=== PATIENT | female | born 1990 | race Caucasian/White ===

== ENCOUNTER 2016-09-23 18:48 | Inpatient (IN) | payer BC ==
[~2016-09-23] VITALS: Ht 147.3 cm; Wt 32.2 kg
[~2016-09-23 18:48] MED LIST: BUPR-51 PO; CHLO25CA10 PO; LORA2TAB PO; VALA500T35 PO
[2016-09-23] MEDS ORDERED: IV NS 0.9% 1,000 ML ONE (19:56)
[2016-09-23] MEDS ORDERED: IV SET PRIMARY 1 EA INFUS.SET MC ONE (19:56)
[2016-09-23] MEDS ORDERED: ONDANSETRON HCL/PF 4 MG/2 ML VIAL ONE (19:56)
[2016-09-23] MEDS ORDERED: IV NS 0.9% 1,000 ML BAG IV ONE (20:00)
[2016-09-23] MEDS ORDERED: ONDANSETRON HCL/PF 4 MG/2 ML VIAL IVP ONE (20:00)
[2016-09-23 20:11] LABS: HEMATOCRIT 29 % (33-45); WHITE BLOOD COUNT (AUTO) 5.6 K/uL (4.3-11.0)
[2016-09-23 20:15] LABS: MEAN CORPUSCULAR HEMOGLOBIN 36 PG (26.0-33.0); MEAN CORPUSCULAR HGB CONC 34 g/dl (31.0-36.0); MEAN CORPUSCULAR VOLUME 105 fL (82-100); PLATELET COUNT (AUTO) 119 /CMM (150-450); RED BLOOD CELL COUNT(AUTO) 2.77 MIL/uL (4.0-5.2)
[2016-09-23 20:29] LABS: ALBUMIN 3.9 g/dL (3.4-5.0); BILIRUBIN,DIRECT 5.8 mg/dL (0.0-0.2); CALCIUM, SERUM 9.3 mg/dL (8.5-10.1); CREATININE 0.5 mg/dL (0.6-1.3); INDIRECT BILIRUBIN 1.2 mg/dL (0.0-1.1); POTASSIUM 3.2 mmol/L (3.5-5.1); TOTAL PROTEIN, SERUM 7.9 g/dL (6.4-8.2)
[2016-09-23] MEDS ORDERED: FOLIC ACID 1 MG TABLET ONE (20:51)
[2016-09-23] MEDS ORDERED: THIAMINE HCL 100 MG TABLET ONE (20:51)
[2016-09-23] MEDS ORDERED: FOLIC ACID 1 MG TABLET PO ONE (21:00)
[2016-09-23] MEDS ORDERED: THIAMINE HCL 100 MG TABLET PO ONE (21:00)
[2016-09-23 21:10] LABS: PHOSPHORUS 1.3 mg/dL (2.5-4.9)
[2016-09-23 21:25] LABS: BAND % (MANUAL) 5 % (0.0-5.0); LYMPHOCYTES % (MANUAL) 8 % (16-48)
[2016-09-23 21:26] LABS: PLATELET ESTIMATE DECREASED
[2016-09-23 21:31] LABS: LACTIC ACID 1.7 mmol/L (0.4-2.0)
[2016-09-23 21:41] LABS: ABG BASE EXCESS -17.4 mmol/L; ABG HCO3 6.7 mmol/L; ABG PCO2 13.3 mmHg (35.0-45.0); ABG PH 7.318 (7.350-7.450); ABG PO2 118.5 mmHg (75.0-100.0); ABG TOTAL HEMOGLOBIN 8.7 G/dL (12.0-16.0); ALLEN TEST Pass; AaDO2 15.3 mmHg; O2Hb 96.8 % (94.0-97.0)
[2016-09-23] MEDS ORDERED: IV SET PRIMARY PUMP SET 1 EA INFUS.SET MC ONE ×2 (21:46→23:12)
[2016-09-23] MEDS ORDERED: Magnesium 1GM/D5W 100ML PREMIX 100 ML IV ONE ×2 (21:46→23:12)
[2016-09-23] MEDS: Magnesium 1GM/D5W 100ML PREMIX 100 ML IV SCH ×2 (21:59→23:25)
[2016-09-23] MEDS ORDERED: LORAZEPAM INJ 2 MG/ML VIAL ONE (22:23)
[2016-09-23] MEDS ORDERED: LORAZEPAM INJ 2 MG/ML VIAL IV ONE (22:30)
[2016-09-24] VITALS: BP 106/71
[2016-09-24] MEDS ORDERED: Magnesium 1GM/D5W 100ML PREMIX 100 ML IV SCH
[2016-09-24] MEDS ORDERED: MAG HYDROX/AL HYDROX/SIMETH 30 ML UDC PO PRN
[2016-09-24] MEDS ORDERED: Sodium Phosphate 15 MMOL in IV D5W 250 ML IV ONE ×2
[2016-09-24] MEDS ORDERED: ACETAMINOPHEN 325 MG TABLET PO PRN
[2016-09-24] MEDS ORDERED: ZOLPIDEM TARTRATE 5 MG TABLET PO PRN
[2016-09-24] MEDS ORDERED: MAGNESIUM HYDROXIDE 30 ML UDC PO PRN
[2016-09-24] MEDS ORDERED: HYDROCODONE/APAP 5/325MG 1 EACH TABLET PO PRN
[2016-09-24] MEDS ORDERED: Z GUARD REMEDY 2 OZ OINT TP PRN
[2016-09-24] MEDS ORDERED: IV SET PRIMARY PUMP SET 1 EA INFUS.SET MC ONE ×3 (00:52→10:28)
[2016-09-24] MEDS ORDERED: IV PREMIX NS + 40 MEQ KCL 40 MEQ/L BAG IV ONE (01:16)
[2016-09-24] MEDS: Magnesium 1GM/D5W 100ML PREMIX 100 ML IV SCH ×4 (01:19→04:25)
[2016-09-24] MEDS ORDERED: IV PREMIX D5 NS + KCL 1,000 ML IV ONE (01:19)
[2016-09-24] MEDS: Potassium Chloride 40 MEQ in IV D5/ 0.9% NACL 1,000 ML IV PRN ×3 (02:03→23:09)
[2016-09-24 04:00] VITALS: BP 93/64
[2016-09-24 08:00] VITALS: BP 89/56
[2016-09-24] MEDS: THIAMINE HCL 100 MG TABLET PO SCH (09:01)
[2016-09-24] MEDS: PANTOPRAZOLE 40 MG TABLET.DR PO SCH (09:01)
[2016-09-24] MEDS: FOLIC ACID 1 MG TABLET PO SCH (09:01)
[2016-09-24] MEDS ORDERED: CLON0.2T PO (09:59)
[2016-09-24] MEDS ORDERED: BUPR1FIL3 SL (09:59)
[2016-09-24] MEDS ORDERED: SECONDARY IV SET 1 EA INFUS.SET MC ONE (10:24)
[2016-09-24] MEDS: POTASSIUM PHOSPHATE MM 5 MMOL in IV D5W 100 ML IV SCH ×4 (10:31→16:43)
[2016-09-24 12:00] VITALS: BP 96/60
[2016-09-24 15:24] LABS: BASOPHILS % (AUTO) 0.7 % (0.0-2.0); DIFF TOTAL % 100 %; EOSINOPHILS % (AUTO) 1.6 % (0.0-6.0); LYMPHOCYTES # (AUTO) 0.4 /CMM (0.8-4.8); LYMPHOCYTES % (AUTO) 19.3 % (20.0-44.0); MEAN CORPUSCULAR HEMOGLOBIN 35 PG (26.0-33.0); MEAN CORPUSCULAR HGB CONC 35 g/dl (31.0-36.0); MEAN CORPUSCULAR VOLUME 101 fL (82-100); MONOCYTES # (AUTO) 0.1 /CMM (0.1-1.30); MONOCYTES % (AUTO) 6.1 % (2.0-12.0); NEUTROPHILS # (AUTO) 1.4 /CMM (1.8-8.9); NEUTROPHILS % (AUTO) 72.3 % (43.0-81.0); PLATELET COUNT (AUTO) 79 /CMM (150-450)
[2016-09-24 16:00] VITALS: BP 87/49
[2016-09-24 16:11] LABS: ABG BASE EXCESS -3.6 mmol/L; ABG HCO3 20.1 mmol/L; ABG PCO2 30.1 mmHg (35.0-45.0); ABG PH 7.442 (7.350-7.450); ABG PO2 100.8 mmHg (75.0-100.0); ABG TOTAL HEMOGLOBIN 7.2 G/dL (12.0-16.0); ALLEN TEST Pass; AaDO2 12.9 mmHg; O2Hb 95.6 % (94.0-97.0)
[2016-09-24 16:27] LABS: HEMATOCRIT 20 % (33-45); RED BLOOD CELL COUNT(AUTO) 1.99 MIL/uL (4.0-5.2)
[2016-09-24 16:28] LABS: WHITE BLOOD COUNT (AUTO) 1.9 K/uL (4.3-11.0)
[2016-09-24 16:48] LABS: ALBUMIN 2.8 g/dL (3.4-5.0); BILIRUBIN,TOTAL 6.2 mg/dL (0.2-1.0); CALCIUM, SERUM 6.6 mg/dL (8.5-10.1); CREATININE 0.6 mg/dL (0.6-1.3); PHOSPHORUS 1.7 mg/dL (2.5-4.9); POTASSIUM 3.1 mmol/L (3.5-5.1); TOTAL PROTEIN, SERUM 5.8 g/dL (6.4-8.2)
[2016-09-24 16:50] LABS: BAND % (MANUAL) 4 % (0.0-5.0); EOSINOPHILS % (MANUAL) 1 % (0-4); LYMPHOCYTES % (MANUAL) 27 % (16-48); PLATELET ESTIMATE DECREASED
[2016-09-24 18:54] LABS: INR 1.17 (0.87-1.13); PROTHROMBIN TIME 12.7 SECS (9.5-12.7)
[2016-09-24 20:00] VITALS: BP 89/51
[2016-09-24] MEDS: ONDANSETRON HCL/PF 4 MG/2 ML VIAL IVP PRN (20:39)
[2016-09-24] MEDS ORDERED: LORAZEPAM INJ 2 MG/ML VIAL ONE (23:23)
[2016-09-24] MEDS: LORAZEPAM INJ 2 MG/ML VIAL IV PRN (23:32)
[2016-09-25] VITALS (10 sets, daily range): BP systolic 81–95; BP diastolic 46–63
[2016-09-25] MEDS: FOLIC ACID 1 MG TABLET PO SCH (08:36)
[2016-09-25] MEDS: THIAMINE HCL 100 MG TABLET PO SCH (08:36)
[2016-09-25] MEDS: PANTOPRAZOLE 40 MG TABLET.DR PO SCH (08:36)
[2016-09-25] MEDS: Potassium Chloride 40 MEQ in IV D5/ 0.9% NACL 1,000 ML IV PRN (09:02)
[2016-09-25 09:27] LABS: BASOPHILS % (AUTO) 0.4 % (0.0-2.0); DIFF TOTAL % 100 %; EOSINOPHILS % (AUTO) 2.1 % (0.0-6.0); LYMPHOCYTES # (AUTO) 0.7 /CMM (0.8-4.8); LYMPHOCYTES % (AUTO) 31.8 % (20.0-44.0); MEAN CORPUSCULAR HEMOGLOBIN 35 PG (26.0-33.0); MEAN CORPUSCULAR HGB CONC 34 g/dl (31.0-36.0); MEAN CORPUSCULAR VOLUME 103 fL (82-100); MONOCYTES # (AUTO) 0.2 /CMM (0.1-1.30); NEUTROPHILS # (AUTO) 1.2 /CMM (1.8-8.9); NEUTROPHILS % (AUTO) 56.7 % (43.0-81.0); PLATELET COUNT (AUTO) 72 /CMM (150-450); WHITE BLOOD COUNT (AUTO) 2.1 K/uL (4.3-11.0)
[2016-09-25 09:40] LABS: RED BLOOD CELL COUNT(AUTO) 1.98 MIL/uL (4.0-5.2)
[2016-09-25 09:41] LABS: HEMATOCRIT 20 % (33-45); HEMOGLOBIN 6.9 g/dL (11.5-14.8)
[2016-09-25 10:23] LABS: BAND % (MANUAL) 1 % (0.0-5.0); EOSINOPHILS % (MANUAL) 2 % (0-4); LYMPHOCYTES % (MANUAL) 31 % (16-48); PLATELET ESTIMATE DECREASED
[2016-09-25 12:04] LABS: CALCIUM, SERUM 7.3 mg/dL (8.5-10.1); CREATININE 0.5 mg/dL (0.6-1.3); POTASSIUM 3.4 mmol/L (3.5-5.1)
[2016-09-25 12:25] LABS: HEPATITIS C VIRUS AB <0.1 s/co ratio (0.0-0.9)
[2016-09-25 13:10] LABS: PHOSPHORUS 0.6 mg/dL (2.5-4.9)
[2016-09-25] MEDS ORDERED: Sodium Phosphate 30 MMOL in IV D5W 250 ML IV ONE (16:00)
[2016-09-25] MEDS ORDERED: Magnesium 1GM/D5W 100ML PREMIX PIGGYBACK IV ONE (16:00)
[2016-09-25] MEDS ORDERED: Magnesium 1GM/D5W 100ML PREMIX 100 ML IV SCH (16:30)
[2016-09-25] MEDS: HYDROMORPHONE 1 MG/1 ML DISP.SYRIN IV PRN (17:02)
[2016-09-25 17:05] LABS: CANNABINOID, URINE NEGATIVE (NEGATIVE); PHENCYCLIDINE SCREEN,URINE NEGATIVE (NEGATIVE)
[2016-09-25] MEDS ORDERED: SECONDARY IV SET 1 EA INFUS.SET MC ONE (17:23)
[2016-09-25] MEDS ORDERED: IV NS 0.9% 250 ML IV ONE ×2 (17:23→20:55)
[2016-09-25] MEDS ORDERED: BLOOD IV SET 1 EA INFUS.SET MC ONE (20:55)
[2016-09-25] MEDS ORDERED: Sodium Phosphate 15 MMOL in IV D5W 250 ML IV ONE (22:00)
[2016-09-26] VITALS: BP_SYST 86; BP_SYST 92; BP_SYST 94; BP_DIAS 46; BP_DIAS 56
[2016-09-26] MEDS: Potassium Chloride 40 MEQ in IV D5/ 0.9% NACL 1,000 ML IV PRN (00:01)
[2016-09-26] MEDS: HYDROMORPHONE 1 MG/1 ML DISP.SYRIN IV PRN ×4 (00:23→20:01)
[2016-09-26] MEDS: PANTOPRAZOLE 40 MG TABLET.DR PO SCH ×2 (07:30→12:05)
[2016-09-26 08:00] VITALS: BP 90/59
[2016-09-26] MEDS: THIAMINE HCL 100 MG TABLET PO SCH (09:00)
[2016-09-26] MEDS: FOLIC ACID 1 MG TABLET PO SCH (09:00)
[2016-09-26 12:02] LABS: BASOPHILS % (AUTO) 0.1 % (0.0-2.0); DIFF TOTAL % 100 %; EOSINOPHILS % (AUTO) 0.6 % (0.0-6.0); HEMATOCRIT 26 % (33-45); LYMPHOCYTES # (AUTO) 0.8 /CMM (0.8-4.8); LYMPHOCYTES % (AUTO) 29.7 % (20.0-44.0); MEAN CORPUSCULAR HEMOGLOBIN 35 PG (26.0-33.0); MEAN CORPUSCULAR HGB CONC 34 g/dl (31.0-36.0); MEAN CORPUSCULAR VOLUME 101 fL (82-100); MONOCYTES # (AUTO) 0.3 /CMM (0.1-1.30); NEUTROPHILS # (AUTO) 1.5 /CMM (1.8-8.9); NEUTROPHILS % (AUTO) 57.6 % (43.0-81.0); PLATELET COUNT (AUTO) 82 /CMM (150-450); RED BLOOD CELL COUNT(AUTO) 2.58 MIL/uL (4.0-5.2); WHITE BLOOD COUNT (AUTO) 2.7 K/uL (4.3-11.0)
[2016-09-26 12:17] LABS: IRON, SERUM 64 ug/dl (50-175); PERCENT SATURATION 50 % (14-33); TOTAL IRON BINDING CAPACITY 128 ug/dl (250-450)
[2016-09-26 12:34] LABS: BAND % (MANUAL) 5 % (0.0-5.0); EOSINOPHILS % (MANUAL) 1 % (0-4); LYMPHOCYTES % (MANUAL) 17 % (16-48)
[2016-09-26 12:35] LABS: ANISOCYTOSIS 1+; PLATELET ESTIMATE DECREASED
[2016-09-26 12:46] LABS: URIC ACID < 2.6 mg/dL (2.6-7.2)
[2016-09-26 12:49] LABS: ANION GAP 16 (5-14); CALCIUM, SERUM 7.1 mg/dL (8.5-10.1); CARBON DIOXIDE 22 mmol/L (21-32); CHLORIDE 102 mmol/L (98-107); CREATININE 0.5 mg/dL (0.6-1.3); GFR 147 mL/min (>60); GLUCOSE 107 mg/dL (74-106); POTASSIUM 3.6 mmol/L (3.5-5.1); SODIUM SERUM 136 mmol/L (136-145); UREA NITROGEN, BLOOD 0 mg/dL (7-18)
[2016-09-26 12:50] VITALS: BP 93/67
[2016-09-26 14:57] LABS: ALBUMIN 2.6 g/dL (3.4-5.0); BILIRUBIN,DIRECT 5.6 mg/dL (0.0-0.2); BILIRUBIN,TOTAL 6.7 mg/dL (0.2-1.0); INDIRECT BILIRUBIN 1.1 mg/dL (0.0-1.1); TOTAL PROTEIN, SERUM 5.5 g/dL (6.4-8.2)
[2016-09-26] MEDS ORDERED: Sodium Phosphate 15 MMOL in IV D5W 250 ML IV ONE (17:30)
[2016-09-26 17:44] VITALS: BP 92/60
[2016-09-26 20:00] VITALS: BP 95/64
[2016-09-27] MEDS: HYDROMORPHONE 1 MG/1 ML DISP.SYRIN IV PRN ×6 (00:14→20:52)
[2016-09-27] MEDS: Potassium Chloride 40 MEQ in IV D5/ 0.9% NACL 1,000 ML IV PRN ×2 (01:08→13:07)
[2016-09-27 04:00] VITALS: BP 81/51
[2016-09-27 06:47] LABS: DIFF TOTAL % 100 %; EOSINOPHILS % (AUTO) 1.3 % (0.0-6.0); HEMATOCRIT 24 % (33-45); HEMOGLOBIN 8.6 g/dL (11.5-14.8); LYMPHOCYTES # (AUTO) 0.7 /CMM (0.8-4.8); LYMPHOCYTES % (AUTO) 21.5 % (20.0-44.0); MEAN CORPUSCULAR HEMOGLOBIN 37 PG (26.0-33.0); MEAN CORPUSCULAR HGB CONC 35 g/dl (31.0-36.0); MEAN CORPUSCULAR VOLUME 103 fL (82-100); MONOCYTES # (AUTO) 0.5 /CMM (0.1-1.30); NEUTROPHILS # (AUTO) 2.1 /CMM (1.8-8.9); NEUTROPHILS % (AUTO) 63.2 % (43.0-81.0); PLATELET COUNT (AUTO) 90 /CMM (150-450); RED BLOOD CELL COUNT(AUTO) 2.37 MIL/uL (4.0-5.2); WHITE BLOOD COUNT (AUTO) 3.3 K/uL (4.3-11.0)
[2016-09-27 08:28] LABS: ANISOCYTOSIS 1+; BAND % (MANUAL) 6 % (0.0-5.0); EOSINOPHILS % (MANUAL) 1 % (0-4); LYMPHOCYTES % (MANUAL) 21 % (16-48); PLATELET ESTIMATE DECREASED
[2016-09-27] MEDS ORDERED: BARIUM SULFATE SUSP 450 ML BOTTLE PO ONE (08:30)
[2016-09-27] MEDS: FOLIC ACID 1 MG TABLET PO SCH ×2 (09:25→11:15)
[2016-09-27] MEDS: PANTOPRAZOLE 40 MG TABLET.DR PO SCH (09:25)
[2016-09-27] MEDS: THIAMINE HCL 100 MG TABLET PO SCH ×2 (09:25→11:15)
[2016-09-27] MEDS: ONDANSETRON HCL/PF 4 MG/2 ML VIAL IVP PRN (10:16)
[2016-09-27 10:42] LABS: CALCIUM, SERUM 7.1 mg/dL (8.5-10.1); CREATININE 0.3 mg/dL (0.6-1.3); PHOSPHORUS 1.8 mg/dL (2.5-4.9); POTASSIUM 3.6 mmol/L (3.5-5.1)
[2016-09-27] MEDS ORDERED: IOHEXOL-300 100 ML VIAL IV ONE (10:49)
[2016-09-27] MEDS ORDERED: IV NS 0.9% 250 ML IV ONE (10:49)
[2016-09-27] MEDS ORDERED: CT SWABBABLE VALVE TRANS SET 1 EA INFUS.SET MC ONE (10:49)
[2016-09-27 12:00] VITALS: BP 110/65
[2016-09-27] MEDS ORDERED: K PHOS NEUTRAL 250 MG TABLET PO ONE (16:00)
[2016-09-27 20:00] VITALS: BP 89/53
[2016-09-28] MEDS: Potassium Chloride 40 MEQ in IV D5/ 0.9% NACL 1,000 ML IV PRN ×2 (00:41→12:40)
[2016-09-28] MEDS: HYDROMORPHONE 1 MG/1 ML DISP.SYRIN IV PRN ×6 (00:49→21:40)
[2016-09-28 04:00] VITALS: BP 89/56
[2016-09-28 07:53] LABS: BASOPHILS % (AUTO) 0.4 % (0.0-2.0); DIFF TOTAL % 100 %; EOSINOPHILS # (AUTO) 0.1 /CMM (0.0-0.7); EOSINOPHILS % (AUTO) 1.7 % (0.0-6.0); HEMATOCRIT 25 % (33-45); HEMOGLOBIN 8.6 g/dL (11.5-14.8); LYMPHOCYTES # (AUTO) 0.7 /CMM (0.8-4.8); LYMPHOCYTES % (AUTO) 19.7 % (20.0-44.0); MEAN CORPUSCULAR HEMOGLOBIN 35 PG (26.0-33.0); MEAN CORPUSCULAR HGB CONC 34 g/dl (31.0-36.0); MEAN CORPUSCULAR VOLUME 104 fL (82-100); MONOCYTES # (AUTO) 0.8 /CMM (0.1-1.30); MONOCYTES % (AUTO) 20.5 % (2.0-12.0); NEUTROPHILS # (AUTO) 2.1 /CMM (1.8-8.9); NEUTROPHILS % (AUTO) 57.7 % (43.0-81.0); PLATELET COUNT (AUTO) 121 /CMM (150-450); RED BLOOD CELL COUNT(AUTO) 2.45 MIL/uL (4.0-5.2); WHITE BLOOD COUNT (AUTO) 3.7 K/uL (4.3-11.0)
[2016-09-28 08:10] LABS: CALCIUM, SERUM 7.3 mg/dL (8.5-10.1); CREATININE 0.3 mg/dL (0.6-1.3); PHOSPHORUS 2.1 mg/dL (2.5-4.9); POTASSIUM 3.8 mmol/L (3.5-5.1)
[2016-09-28 08:55] VITALS: BP 100/56
[2016-09-28 08:57] LABS: ANISOCYTOSIS 2+; BAND % (MANUAL) 6 % (0.0-5.0); LYMPHOCYTES % (MANUAL) 17 % (16-48); PLATELET ESTIMATE DECREASED
[2016-09-28] MEDS: PANTOPRAZOLE 40 MG TABLET.DR PO SCH (08:58)
[2016-09-28 12:00] VITALS: BP 86/56
[2016-09-28 12:14] LABS: ALBUMIN 2.5 g/dL (3.4-5.0); BILIRUBIN,DIRECT 5.9 mg/dL (0.0-0.2); INDIRECT BILIRUBIN 1.1 mg/dL (0.0-1.1); TOTAL PROTEIN, SERUM 5.5 g/dL (6.4-8.2)
[2016-09-28 16:16] VITALS: BP 96/58
[2016-09-28] MEDS ORDERED: K PHOS NEUTRAL 250 MG TABLET PO ONE (16:30)
[2016-09-28 20:00] VITALS: BP 88/56
[2016-09-29] MEDS: HYDROMORPHONE 1 MG/1 ML DISP.SYRIN IV PRN ×6 (02:15→22:06)
[2016-09-29] MEDS: Potassium Chloride 40 MEQ in IV D5/ 0.9% NACL 1,000 ML IV PRN ×3 (02:15→22:06)
[2016-09-29 04:00] VITALS: BP 81/47
[2016-09-29 07:18] LABS: BASOPHILS % (AUTO) 0.4 % (0.0-2.0); DIFF TOTAL % 100 %; EOSINOPHILS # (AUTO) 0.1 /CMM (0.0-0.7); EOSINOPHILS % (AUTO) 1.8 % (0.0-6.0); HEMATOCRIT 24 % (33-45); HEMOGLOBIN 8.1 g/dL (11.5-14.8); LYMPHOCYTES # (AUTO) 0.9 /CMM (0.8-4.8); LYMPHOCYTES % (AUTO) 23.8 % (20.0-44.0); MEAN CORPUSCULAR HEMOGLOBIN 35 PG (26.0-33.0); MEAN CORPUSCULAR HGB CONC 33 g/dl (31.0-36.0); MEAN CORPUSCULAR VOLUME 104 fL (82-100); MONOCYTES # (AUTO) 0.7 /CMM (0.1-1.30); MONOCYTES % (AUTO) 18.1 % (2.0-12.0); NEUTROPHILS # (AUTO) 2.2 /CMM (1.8-8.9); NEUTROPHILS % (AUTO) 55.9 % (43.0-81.0); PLATELET COUNT (AUTO) 144 /CMM (150-450); RED BLOOD CELL COUNT(AUTO) 2.35 MIL/uL (4.0-5.2); WHITE BLOOD COUNT (AUTO) 3.9 K/uL (4.3-11.0)
[2016-09-29 07:46] LABS: CALCIUM, SERUM 7.7 mg/dL (8.5-10.1); CREATININE 0.3 mg/dL (0.6-1.3); PHOSPHORUS 2.5 mg/dL (2.5-4.9); POTASSIUM 3.9 mmol/L (3.5-5.1)
[2016-09-29 08:00] VITALS: BP 74/48
[2016-09-29 08:11] LABS: ANISOCYTOSIS 1+; BAND % (MANUAL) 3 % (0.0-5.0); EOSINOPHILS % (MANUAL) 2 % (0-4); LYMPHOCYTES % (MANUAL) 22 % (16-48); PLATELET ESTIMATE DECREASED
[2016-09-29] MEDS: FOLIC ACID 1 MG TABLET PO SCH (09:08)
[2016-09-29] MEDS: THIAMINE HCL 100 MG TABLET PO SCH (09:08)
[2016-09-29] MEDS: ONDANSETRON HCL/PF 4 MG/2 ML VIAL IVP PRN (09:11)
[2016-09-29 16:00] VITALS: BP 74/37
[2016-09-29 16:05] VITALS: BP 86/42
[2016-09-29 20:00] VITALS: BP 91/54
[2016-09-30] VITALS (11 sets, daily range): BP systolic 91–106; BP diastolic 43–66
[2016-09-30] MEDS: HYDROMORPHONE 1 MG/1 ML DISP.SYRIN IV PRN ×6 (02:05→22:37)
[2016-09-30] MEDS: PANTOPRAZOLE 40 MG TABLET.DR PO SCH (06:42)
[2016-09-30 07:11] LABS: INR 1.46 (0.87-1.13); PROTHROMBIN TIME 15.8 SECS (9.5-12.7)
[2016-09-30 08:40] LABS: DIFF TOTAL % 100 %; EOSINOPHILS % (AUTO) 1.3 % (0.0-6.0); HEMATOCRIT 23 % (33-45); HEMOGLOBIN 7.7 g/dL (11.5-14.8); LYMPHOCYTES # (AUTO) 0.5 /CMM (0.8-4.8); MEAN CORPUSCULAR HEMOGLOBIN 35 PG (26.0-33.0); MEAN CORPUSCULAR HGB CONC 34 g/dl (31.0-36.0); MEAN CORPUSCULAR VOLUME 103 fL (82-100); MONOCYTES # (AUTO) 0.9 /CMM (0.1-1.30); MONOCYTES % (AUTO) 25.8 % (2.0-12.0); NEUTROPHILS # (AUTO) 2.1 /CMM (1.8-8.9); NEUTROPHILS % (AUTO) 57.9 % (43.0-81.0); PLATELET COUNT (AUTO) 159 /CMM (150-450); RED BLOOD CELL COUNT(AUTO) 2.24 MIL/uL (4.0-5.2); WHITE BLOOD COUNT (AUTO) 3.6 K/uL (4.3-11.0)
[2016-09-30 08:49] LABS: CALCIUM, SERUM 8.2 mg/dL (8.5-10.1); CREATININE 0.4 mg/dL (0.6-1.3); POTASSIUM 3.8 mmol/L (3.5-5.1)
[2016-09-30] MEDS ORDERED: LIDOCAINE HCL/PF 1% 30 ML SDV ONE (08:52)
[2016-09-30] MEDS ORDERED: diphenhydrAMINE HCL 50 MG/ML VIAL IV ONE (09:15)
[2016-09-30] MEDS ORDERED: MIDAZOLAM HCL 5MG/ML VIAL 25 MG/5 ML VIAL IV ONE (09:30)
[2016-09-30] MEDS ORDERED: FENTANYL PF 250MCG/5ML AMPUL IV ONE (09:30)
[2016-09-30] MEDS ORDERED: GELATIN SPONGE,ABSORBABLE 1 SPONGE SPONGE TP ONE (09:30)
[2016-09-30] MEDS ORDERED: NALOXONE PREFILLED SYRINGE 2 MG/2 ML SYRINGE IV ONE (09:30)
[2016-09-30] MEDS: FOLIC ACID 1 MG TABLET PO SCH (10:41)
[2016-09-30] MEDS: THIAMINE HCL 100 MG TABLET PO SCH (10:41)
[2016-09-30] MEDS: Potassium Chloride 40 MEQ in IV D5/ 0.9% NACL 1,000 ML IV PRN ×2 (10:49→21:06)
[2016-09-30 12:07] LABS: ANISOCYTOSIS 1+; LYMPHOCYTES % (MANUAL) 35 % (16-48); PLATELET ESTIMATE ADEQUATE
[2016-09-30 12:08] LABS: TARGET CELLS 1+
[2016-09-30] MEDS: diphenhydrAMINE HCL 25 MG CAPSULE PO PRN (18:47)
[2016-10-01] MEDS: diphenhydrAMINE HCL 25 MG CAPSULE PO PRN ×4 (00:09→17:36)
[2016-10-01] MEDS: HYDROMORPHONE 1 MG/1 ML DISP.SYRIN IV PRN ×7 (02:02→23:16)
[2016-10-01 04:00] VITALS: BP 109/59
[2016-10-01] MEDS: Potassium Chloride 40 MEQ in IV D5/ 0.9% NACL 1,000 ML IV PRN (06:01)
[2016-10-01] MEDS: PANTOPRAZOLE 40 MG TABLET.DR PO SCH (06:02)
[2016-10-01 07:15] LABS: DIFF TOTAL % 100 %; EOSINOPHILS % (AUTO) 1.4 % (0.0-6.0); HEMATOCRIT 25 % (33-45); HEMOGLOBIN 8.4 g/dL (11.5-14.8); LYMPHOCYTES # (AUTO) 0.6 /CMM (0.8-4.8); LYMPHOCYTES % (AUTO) 19.1 % (20.0-44.0); MEAN CORPUSCULAR HEMOGLOBIN 36 PG (26.0-33.0); MEAN CORPUSCULAR HGB CONC 34 g/dl (31.0-36.0); MEAN CORPUSCULAR VOLUME 106 fL (82-100); MONOCYTES # (AUTO) 0.8 /CMM (0.1-1.30); MONOCYTES % (AUTO) 22.5 % (2.0-12.0); NEUTROPHILS # (AUTO) 1.9 /CMM (1.8-8.9); PLATELET COUNT (AUTO) 169 /CMM (150-450); RED BLOOD CELL COUNT(AUTO) 2.32 MIL/uL (4.0-5.2); WHITE BLOOD COUNT (AUTO) 3.4 K/uL (4.3-11.0)
[2016-10-01] MEDS ORDERED: IV SET PRIMARY 1 EA INFUS.SET MC ONE ×2 (07:41→07:44)
[2016-10-01 08:00] VITALS: BP 88/43
[2016-10-01] MEDS: THIAMINE HCL 100 MG TABLET PO SCH (10:22)
[2016-10-01] MEDS: FOLIC ACID 1 MG TABLET PO SCH (10:22)
[2016-10-01 10:24] LABS: BAND % (MANUAL) 3 % (0.0-5.0); EOSINOPHILS % (MANUAL) 1 % (0-4); LYMPHOCYTES % (MANUAL) 30 % (16-48); PLATELET ESTIMATE GIANT
[2016-10-01 10:25] LABS: HYPOCHROMASIA 2+
[2016-10-01 11:36] LABS: CALCIUM, SERUM 8.7 mg/dL (8.5-10.1); CREATININE 0.4 mg/dL (0.6-1.3); POTASSIUM 5.1 mmol/L (3.5-5.1)
[2016-10-01 11:44] LABS: ALBUMIN 2.2 g/dL (3.4-5.0); TOTAL PROTEIN, SERUM 5.2 g/dL (6.4-8.2)
[2016-10-01 13:48] LABS: BILIRUBIN,TOTAL 6.3 mg/dL (0.2-1.0)
[2016-10-01 16:00] VITALS: BP 97/52
[2016-10-01] MEDS: LORAZEPAM INJ 2 MG/ML VIAL IV PRN (19:48)
[2016-10-01 20:00] VITALS: BP 88/50
[2016-10-01] MEDS ORDERED: hydrOXYzine PAMOATE 25 MG CAPSULE ONE (21:39)
[2016-10-01] MEDS: hydrOXYzine PAMOATE 25 MG CAPSULE PO PRN (21:45)
[2016-10-02] MEDS: HYDROMORPHONE 1 MG/1 ML DISP.SYRIN IV PRN ×6 (02:15→17:45)
[2016-10-02 04:00] VITALS: BP 96/47
[2016-10-02] MEDS ORDERED: hydrOXYzine PAMOATE 25 MG CAPSULE ONE (05:01)
[2016-10-02] MEDS: hydrOXYzine PAMOATE 25 MG CAPSULE PO PRN ×3 (05:17→17:51)
[2016-10-02 07:19] LABS: DIFF TOTAL % 100 %; EOSINOPHILS % (AUTO) 0.9 % (0.0-6.0); HEMATOCRIT 24 % (33-45); HEMOGLOBIN 8.4 g/dL (11.5-14.8); LYMPHOCYTES # (AUTO) 0.6 /CMM (0.8-4.8); LYMPHOCYTES % (AUTO) 13.2 % (20.0-44.0); MEAN CORPUSCULAR HEMOGLOBIN 36 PG (26.0-33.0); MEAN CORPUSCULAR HGB CONC 35 g/dl (31.0-36.0); MEAN CORPUSCULAR VOLUME 105 fL (82-100); MONOCYTES # (AUTO) 0.8 /CMM (0.1-1.30); MONOCYTES % (AUTO) 18.6 % (2.0-12.0); NEUTROPHILS # (AUTO) 2.9 /CMM (1.8-8.9); NEUTROPHILS % (AUTO) 67.3 % (43.0-81.0); PLATELET COUNT (AUTO) 186 /CMM (150-450); RED BLOOD CELL COUNT(AUTO) 2.32 MIL/uL (4.0-5.2); WHITE BLOOD COUNT (AUTO) 4.4 K/uL (4.3-11.0)
[2016-10-02 08:00] VITALS: BP 88/52
[2016-10-02 08:01] LABS: CALCIUM, SERUM 8.6 mg/dL (8.5-10.1); CREATININE 0.4 mg/dL (0.6-1.3); POTASSIUM 3.7 mmol/L (3.5-5.1)
[2016-10-02 09:20] LABS: BAND % (MANUAL) 7 % (0.0-5.0); EOSINOPHILS % (MANUAL) 2 % (0-4); LYMPHOCYTES % (MANUAL) 14 % (16-48)
[2016-10-02 09:21] LABS: ANISOCYTOSIS 2+; PLATELET ESTIMATE ADEQUATE
[2016-10-02] MEDS: FOLIC ACID 1 MG TABLET PO SCH (11:28)
[2016-10-02] MEDS: THIAMINE HCL 100 MG TABLET PO SCH (11:28)
[2016-10-02] MEDS: PANTOPRAZOLE 40 MG TABLET.DR PO SCH (11:28)
[2016-10-02] MEDS ORDERED: MEGESTROL ACETATE SUSP 400 MG/10 ML UDC PO ONE (12:00)
[2016-10-02] MEDS: Magnesium 1GM/D5W 100ML PREMIX 100 ML IV SCH ×3 (14:14→15:14)
[2016-10-02 15:11] VITALS: BP 88/52
[2016-10-02 16:00] VITALS: BP 97/52
== END 2016-10-02 21:24 | disposition home or self-care (01) | DRG 432 ==
LOC: ER 18:53 → TELE-TD 22:59 → TELE1 09-24 00:22 → MEDSG1 09-26 10:31
PROVIDERS: ADMIT Internal Medicine; ATTEND Nurse Practitioner Acute Care
PROC: 05H633Z Insertion of Infusion Device into Left Subclavian Vein, Percutaneous Approach (ICD-10-PCS; principal; 2016-09-25)
PROC: B547ZZA Ultrasonography of Left Subclavian Vein, Guidance (ICD-10-PCS; 2016-09-25)
PROC: 30233N1 Transfusion of Nonautologous Red Blood Cells into Peripheral Vein, Percutaneous Approach (ICD-10-PCS; 2016-09-25)
PROC: 0FB13ZX Excision of Right Lobe Liver, Percutaneous Approach, Diagnostic (ICD-10-PCS; 2016-09-30)
DX: K70.10 Alcoholic hepatitis without ascites (principal); E43 Unspecified severe protein-calorie malnutrition; R64 Cachexia; E87.2 Acidosis; F11.20 Opioid dependence, uncomplicated; F50.2 Bulimia nervosa; F17.210 Nicotine dependence, cigarettes, uncomplicated; R74.0 Nonspecific elevation of levels of transaminase and lactic acid dehydrogenase [LDH]; E87.6 Hypokalemia; E83.39 Other disorders of phosphorus metabolism; E83.42 Hypomagnesemia; D53.9 Nutritional anemia, unspecified; E03.9 Hypothyroidism, unspecified; D70.9 Neutropenia, unspecified; D69.6 Thrombocytopenia, unspecified; D63.8 Anemia in other chronic diseases classified elsewhere; E86.0 Dehydration; F10.20 Alcohol dependence, uncomplicated; F19.10 Other psychoactive substance abuse, uncomplicated; F32.9 Major depressive disorder, single episode, unspecified; F41.9 Anxiety disorder, unspecified
CPT/HCPCS: 36415; 36569; 36600; 71010-TC; 76705-TC; 77012-TC; 80048-TC; 80053-TC; 80074; 80076-TC; 80305; 82272-TC; 82728-TC; 82746; 82803-TC; 82962-TC; 83010; 83516; 83540-TC; 83605-TC; 83615-TC; 83690-TC; 83735-TC; 84100-TC; 84439-TC; 84443-TC; 84550-TC; 85025-TC; 85045-TC; 85610-TC; 85730-TC; 86850-TC; 86880-TC; 86901; 86921-TC; 87081-TC; 88305-TC; 88307-TC; 88313-TC; A4606; A9563; G6039-TC; G6040-TC; J1170; J1200; J2060; J2250; J2310; J2405; J3010; J3475; J3480; J3490; J7030; J7042; J7050; J7060; P9016-BL; Q0163; Q0177; Q9967; Z7610

== ENCOUNTER 2016-10-12 19:06 | Emergency (ER) | payer BC ==
[~2016-10-12 19:06] MED LIST changes: +BUPR1FIL3 SL; +CLON0.2T PO
== END 2016-10-12 19:31 | disposition left against medical advice (07) ==
LOC: ER 19:09
DX: Z53.21 Procedure and treatment not carried out due to patient leaving prior to being seen by health care provider (principal)

== ENCOUNTER 2016-11-02 11:35 | Emergency (ER) | payer BC ==
[~2016-11-02] VITALS: Ht 149.9 cm; Wt 33.6 kg
[2016-11-02] MEDS ORDERED: IV SET PRIMARY 1 EA INFUS.SET MC ONE (12:07)
[2016-11-02] MEDS ORDERED: IV NS 0.9% 500 ML IV ONE (12:07)
[2016-11-02 12:23] LABS: BASOPHILS # (AUTO) 0.1 /CMM (0.0-0.2); BASOPHILS % (AUTO) 0.9 % (0.0-2.0); DIFF TOTAL % 100 %; EOSINOPHILS # (AUTO) 0.2 /CMM (0.0-0.7); EOSINOPHILS % (AUTO) 1.4 % (0.0-6.0); HEMATOCRIT 29 % (33-45); HEMOGLOBIN 10.1 g/dL (11.5-14.8); LYMPHOCYTES # (AUTO) 1.3 /CMM (0.8-4.8); LYMPHOCYTES % (AUTO) 10.3 % (20.0-44.0); MEAN CORPUSCULAR HEMOGLOBIN 37 PG (26.0-33.0); MEAN CORPUSCULAR HGB CONC 35 g/dl (31.0-36.0); MEAN CORPUSCULAR VOLUME 106 fL (82-100); MONOCYTES # (AUTO) 0.6 /CMM (0.1-1.30); MONOCYTES % (AUTO) 5.1 % (2.0-12.0); NEUTROPHILS # (AUTO) 10.4 /CMM (1.8-8.9); NEUTROPHILS % (AUTO) 82.3 % (43.0-81.0); PLATELET COUNT (AUTO) 382 /CMM (150-450); RED BLOOD CELL COUNT(AUTO) 2.76 MIL/uL (4.0-5.2); WHITE BLOOD COUNT (AUTO) 12.6 K/uL (4.3-11.0)
[2016-11-02] MEDS ORDERED: IV NS 0.9% 500 ML BAG IV ONE (12:30)
[2016-11-02 12:32] LABS: ANION GAP 13 (5-14); CALCIUM, SERUM 8.8 mg/dL (8.5-10.1); CARBON DIOXIDE 22 mmol/L (21-32); CHLORIDE 103 mmol/L (98-107); CREATININE 0.4 mg/dL (0.6-1.3); GFR 190 mL/min (>60); GLUCOSE 88 mg/dL (74-106); POTASSIUM 3.6 mmol/L (3.5-5.1); SODIUM SERUM 135 mmol/L (136-145); UREA NITROGEN, BLOOD 9 mg/dL (7-18)
[2016-11-02 12:35] LABS: INR 1.23 (0.87-1.13); PROTHROMBIN TIME 12.9 SECS (9.5-12.7)
[2016-11-02 12:37] LABS: ALANINE AMINOTRANSFERASE 44 U/L (12-78); ALBUMIN 2.9 g/dL (3.4-5.0); ASPARTATE AMINOTRANSFERASE 147 U/L (15-37); BILIRUBIN,DIRECT 2.6 mg/dL (0.0-0.2); BILIRUBIN,TOTAL 2.9 mg/dL (0.2-1.0); INDIRECT BILIRUBIN 0.3 mg/dL (0.0-1.1); TOTAL PROTEIN, SERUM 7.5 g/dL (6.4-8.2)
[2016-11-02 12:39] LABS: TROPONIN I < 0.017 ng/mL (0.00-0.056)
[2016-11-02] MEDS ORDERED: IBUPROFEN 400 MG TABLET ONE (13:59)
[2016-11-02] MEDS ORDERED: TDAP [DIPH/PERTUSSIS/TET] 0.5 ML VIAL IM ONE ×2 (14:00)
[2016-11-02] MEDS ORDERED: IBUPROFEN 400 MG TABLET PO ONE (14:00)
[2016-11-02 14:26] VITALS: BP 103/79
== END 2016-11-02 14:27 | disposition home or self-care (01) ==
LOC: ER 11:37
DX: S01.01XA Laceration without foreign body of scalp, initial encounter (principal); S06.9X9A Unspecified intracranial injury with loss of consciousness of unspecified duration, initial encounter; K70.10 Alcoholic hepatitis without ascites; R63.0 Anorexia; X58.XXXA Exposure to other specified factors, initial encounter; Y93.89 Activity, other specified; Y92.89 Other specified places as the place of occurrence of the external cause; Y99.8 Other external cause status
CPT/HCPCS: 36415; 70450; 71010; 80048; 80076; 84484; 85025; 85730; 86850; 90471; 90715; 93005; 99285; A4606; A6402 ×2; J7040; Z7610

== ENCOUNTER 2016-11-21 18:15 | Inpatient (IN) | payer BC ==
[~2016-11-21] VITALS: Ht 147.3 cm; Wt 40.8 kg
--- NOTE | 2016-11-21 18:35 | NUR ---
PT AMBULATORY TO ER BED 09. C/O ABDOMINAL PAIN AND DISTENSION X 5 DAYS NOW. PT STATES BEEN WORST X 3 DAYS. HX OF ALCOHOLISM AND IV DRUG USE. GOWNED AND PLACED ON MONITOR. AWAITING MD CABRERA.
--- NOTE | 2016-11-21 20:01 | NUR ---
IV LINE STARTED BLOOD DRAWN AND SENT TO LAB.
--- NOTE | 2016-11-21 20:03 | NUR ---
DR LEÓN AT BEDSIDE FOR EVAL.
[2016-11-21 20:08] LABS: BASOPHILS # (AUTO) 0.1 /CMM (0.0-0.2); BASOPHILS % (AUTO) 0.7 % (0.0-2.0); EOSINOPHILS # (AUTO) 0.1 /CMM (0.0-0.7); EOSINOPHILS % (AUTO) 1.6 % (0.0-6.0); HEMATOCRIT 29 % (33-45); HEMOGLOBIN 10.1 g/dL (11.5-14.8); LYMPHOCYTES # (AUTO) 2.1 /CMM (0.8-4.8); LYMPHOCYTES % (AUTO) 22.8 % (20.0-44.0); MEAN CORPUSCULAR HEMOGLOBIN 37 PG (26.0-33.0); MEAN CORPUSCULAR HGB CONC 35 g/dl (31.0-36.0); MEAN CORPUSCULAR VOLUME 107 fL (82-100); MONOCYTES # (AUTO) 0.7 /CMM (0.1-1.30); MONOCYTES % (AUTO) 7.9 % (2.0-12.0); NEUTROPHILS # (AUTO) 6.4 /CMM (1.8-8.9); PLATELET COUNT (AUTO) 128 /CMM (150-450); RDW COEFFICIENT OF VARIATION 15.7 (11.5-15.0); RED BLOOD CELL COUNT(AUTO) 2.69 MIL/uL (4.0-5.2); WHITE BLOOD COUNT (AUTO) 9.4 K/uL (4.3-11.0)
[2016-11-21 20:22] LABS: ALBUMIN 2.6 g/dL (3.4-5.0); BILIRUBIN,DIRECT 1.3 mg/dL (0.0-0.2); BILIRUBIN,TOTAL 1.5 mg/dL (0.2-1.0); CALCIUM, SERUM 8.3 mg/dL (8.5-10.1); CREATININE 0.7 mg/dL (0.6-1.3); POTASSIUM 3.9 mmol/L (3.5-5.1); TOTAL PROTEIN, SERUM 6.8 g/dL (6.4-8.2)
--- NOTE | 2016-11-21 20:38 | NUR ---
RADIOLOGY AT BEDSIDE FOR CHEST XRAY.
[2016-11-21 20:42] LABS: INR 1.15 (0.87-1.13); PROTHROMBIN TIME 12.1 SECS (9.5-12.7)
[2016-11-21 21:26] LABS: APPEARANCE,URINE Clear (CLEAR); BILIRUBIN,URINE Negative (NEGATIVE); BLOOD, URINE Trace-intact Ery/uL (NEGATIVE); COLOR,URINE Dark (YELLOW); KETONES,URINE Negative (NEGATIVE); LEUKOCYTE ESTERASE ,URINE Negative (NEGATIVE); NITRITE, URINE Negative (NEGATIVE); PH,URINE 6.5 (5.0-8.0); PROTEIN,URINE Negative (NEGATIVE); UGLUCOSE Negative (NEGATIVE)
[2016-11-21 21:30] LABS: PREGNANCY TEST URINE QUAL NEGATIVE (NEGATIVE)
--- NOTE | 2016-11-21 21:37 | NUR ---
PAGED INTERNATIONAL RELATIONS TEACHER PANEL DR MOHAN
[2016-11-21 21:39] LABS: ADD URINE CULTURE NO; BACTERIA,URINE None seen /HPF (None Seen); SQUAMOUS EPITHELIAL CELL,UR Few /HPF (None Seen); WBC,URINE 0-2 /HPF (0-3)
--- NOTE | 2016-11-21 22:27 | NUR ---
REPORT GIVEN TO MUKUND TREJO AWAITING TRANSFER TO FLOOR.
--- NOTE | 2016-11-21 22:45 | NUR ---
RECEIVED PT FROM ER. PT IS ALERT AND ORIENTED X 4. WITH MOTHER AT BED SIDE. ABLE TO MAKE NEEDS KNOWN. VERBALLY RESPONSIVE. NO ACUTE DISTRESS, NO SOB NOTED. RESPIRATION IS EVEN AND UNLABORED. IV SITE ON LEFT HAND INTACT AND PATENT, NO S/S OF INFILTRATION NOTED. NO C/O PAIN OR DISCOMFORT AT THIS TIME. ALL NEEDS AT THIS TIME ATTENDED AND MET. KEPT COMFORTABLE. WILL CONT TO MONITOR. CALL LIGHT WITHIN REACH. BODY CHECK DONE, SKIN IS INTACT. AWAITING FOR ADMISSION ORDERS FROM DR. MOHAN.
[2016-11-22] MEDS ORDERED: LORAZEPAM 1 MG TABLET PO PRN ×3 (00:30→08:00)
--- NOTE | 2016-11-22 00:30 | NUR ---
MS RN NOTES PT IN BED, RESTING COMFORTABLY . NO ACUTE DISTRESS, NO SOB NOTED. RESPIRATION IS EVEN AND UNLABORED. REFUSED DVT PUMP X3, RISK AND BENEFITS EXPLAINED , PT STILL REFUSED.
[2016-11-22] MEDS ORDERED: ONDANSETRON HCL/PF 4 MG/2 ML VIAL IVP PRN (01:00)
[2016-11-22] MEDS ORDERED: Z GUARD REMEDY 2 OZ OINT TP PRN (01:00)
[2016-11-22] MEDS ORDERED: MAGNESIUM HYDROXIDE 30 ML UDC PO PRN (01:00)
[2016-11-22] MEDS ORDERED: ZOLPIDEM TARTRATE 5 MG TABLET PO PRN (01:00)
[2016-11-22] MEDS ORDERED: MAG HYDROX/AL HYDROX/SIMETH 30 ML UDC PO PRN (01:00)
[2016-11-22] MEDS ORDERED: HYDROCODONE/APAP 5/325MG 1 EACH TABLET ONE ×2 (01:33→06:45)
[2016-11-22] MEDS: HYDROCODONE/APAP 5/325MG 1 EACH TABLET PO PRN ×3 (01:41→22:38)
[2016-11-22] MEDS ORDERED: ZOLPIDEM TARTRATE 5 MG TABLET ONE (01:48)
[2016-11-22] MEDS ORDERED: ACETAMINOPHEN 325 MG TABLET ONE (04:27)
[2016-11-22] MEDS: ACETAMINOPHEN 325 MG TABLET PO PRN ×2 (04:33→20:55)
--- NOTE | 2016-11-22 05:59 | NUR ---
PT STILL C/O PAIN AND STATED THAT NORCO IS NOT HELPING HER WITH HER ABDOMINAL PAIN, DISCUSSED WITH DR. MOHAN WITH NEW ORDER TO GIVE DILAUDID 1MG IV X 1. NOTED AND CARRIED OUT
--- NOTE | 2016-11-22 06:08 | NUR ---
PT ASLEEP AT THIS TIME. NO S/S OF PAIN OR DISCOMFORT
[2016-11-22] MEDS ORDERED: HYDROMORPHONE 1 MG/1 ML DISP.SYRIN IV ONE (06:30)
--- NOTE | 2016-11-22 06:35 | NUR ---
MS RN NOTES PT IS ASLEEP AT THIS TIME, AROUSED EASILY. PT IS ALERT AND ORIENTED X4. ABLE TO MAKE NEEDS KNOWN. VERBALLY RESPONSIVE. NO ACUTE DISTRESS, NO SOB NOTED. RESPIRATION IS EVEN AND UNLABORED. IV SITE ON LEFT HAND INTACT AND PATENT, NO S/S OF INFILTRATION NOTED. NO C/O PAIN OR DISCOMFORT AT THIS TIME. VOIDING FREELY WITH YELLOW URINE, NO DYSURIA NOTED. ALL NEEDS ATTENDED AND MET. KEPT COMFORTABLE. CALL LIGHT WITHIN REACH. WILL ENDORSE TO NEXT SHIFT FOR KAUSHAL.
--- NOTE | 2016-11-22 06:59 | NUR ---
PT CHANGED HER MIND REGARDING DILAUDID IVP, AND PREFERS TO HAVE NORCO 5/325 LATER FOR PAIN. WILL CONT TO MONITOR.
--- NOTE | 2016-11-22 07:24 | NUR ---
PT C/O PAIN ABDOMINAL PAIN 02/07 AT THIS TIME, BP IS 93/64 AT THIS TIME, RISK AND BENEFITS OF RECEIVING NORCO WITH THE ABOVE BP EXPLAINED TO THE PT. PT REFUSED TO TAKE NORCO AT THIS TIME, NON PHARMACOLOGICAL INTERVENTION RENDERED PER PT EFFECTIVE AT THIS TIME, ENDORSED TO MIKHAIL CINTRON
--- NOTE | 2016-11-22 07:39 | NUR ---
RN AM NOTES RECEIVED PATIENT IN BED, AWAKE. ASKED FOR PAIN MEDICATION, BUT COULD NOT GIVE IT DUE TO HYPOTENSION. MD AWARE, AWAITING CLARIFICATION ON ULTRASOUND POSSIBLY SCHEDULED FOR TODAY. WILL CONTINUE TO MONITOR
[2016-11-22 08:00] VITALS: BP 98/63
--- NOTE | 2016-11-22 08:01 | NUR ---
UNABLE TO ADMINISTER PAIN MEDICATION BECAUSE HYPOTENSIVE, BP 94/54. PATIENT IS USING DISTRACTION AND REPOSITIONING AN ALTERNATE MEANS OF PAIN CONTROL. WILL CONTINUE TO MONITOR.
[2016-11-22] MEDS: FOLIC ACID 1 MG TABLET PO SCH (08:56)
[2016-11-22] MEDS: THIAMINE HCL 100 MG TABLET PO SCH (08:57)
[2016-11-22] MEDS: PANTOPRAZOLE 40 MG TABLET.DR PO SCH (08:57)
[2016-11-22] MEDS: CHLORDIAZEPOXIDE HCL 25 MG CAPSULE PO SCH ×4 (08:57→20:54)
[2016-11-22] MEDS: VALACYCLOVIR HCL 500 MG TABLET PO SCH (08:57)
[2016-11-22] MEDS ORDERED: Medication Not On Formulary EA (Buprenorphine Hcl/Naloxone Hcl (Suboxone 8 Mg-2 Mg Sl Fi SL SCH (09:00)
[2016-11-22] MEDS ORDERED: BUPROPION XL 150 MG TAB.ER.24 PO SCH (09:00)
--- NOTE | 2016-11-22 09:04 | NUR ---
ADMINISTERED DILAUDID IV PUSH BP 102/70, P 72, R 19, SP O2 98%, PAIN 8/10. PATIENT TOLERATED WELL. EDUCATED TO LET US KNOW IF SHE FEELS DIZZY OR SOB. WILL CONTINUE TO MONITOR.
[2016-11-22 16:00] VITALS: BP 98/64
--- NOTE | 2016-11-22 18:46 | NUR ---
RN PM NOTES MD PLAN TO POSSIBLY DISCHARGE TOMORROW. NO FURTHER DOSES OF DILAUDID PER MD BECAUSE OF MEDICAL HISTORY. POSSIBLE PARACENTESIS TONIGHT. SUPPLIES AT BEDSIDE. PATIENT RESTING IN BED SAFELY AND COMFORTABLY. WILL ENDORSE TO NEXT SHIFT
--- NOTE | 2016-11-22 19:30 | NUR ---
RN NOTES RECEIVED PT AWAKE IN BED, NO SOB, NOT IN DISTRESS AND TOLERATING ROOM AIR. WITH ONGOING ULTRASOUND GUIDED PARACENTESIS, PT TOLERATING WELL. PT ALERT AND ORIENTED X4, VERBALIZING NORCO IS NOT HELPING HER WITH HER ABDOMINAL PAIN AND SHE'S ASKING FOR DILAUDID. KEPT PT COMFORTABLE AND ATTENDED. WILL CONTINUE TO MONITOR PT.
[2016-11-22 20:00] VITALS: BP 114/81
--- NOTE | 2016-11-22 20:00 | NUR ---
RN NOTES US GUIDED PARACENTESIS DONE WITH TOTAL OUTPUT OF 750ML, YELLOWISH IN COLOR. VISITED BY DR BURCH, SEEN AND EXAMINED PT AND PT IS ASKING FOR DILAUDID. IT WAS EXPLAINED TO THE PT THAT SHE CANNOT HAVE STRONGER NARCOTIC PAIN MEDS AND WILL COMMUNICATE PLAN OF CARE WITH THE PRIMARY MD. NEW ORDERS RECEIVED, PERITONEAL FLUID WILL SEND TO LAB FOR ANALYSIS ORDERED. PT AWARE. NOTED AND CARRIED.
--- NOTE | 2016-11-22 20:55 | NUR ---
RN NOTES TYLENOL 650 MG TAB GIVEN PO FOR TEMP OF 100.2. WILL CONTINUE TO MONITOR PT.
[2016-11-22 21:22] LABS: BASOPHILS % (AUTO) 0.4 % (0.0-2.0); EOSINOPHILS # (AUTO) 0.1 /CMM (0.0-0.7); EOSINOPHILS % (AUTO) 1.1 % (0.0-6.0); HEMATOCRIT 32 % (33-45); HEMOGLOBIN 10.7 g/dL (11.5-14.8); LYMPHOCYTES # (AUTO) 1.4 /CMM (0.8-4.8); LYMPHOCYTES % (AUTO) 16.4 % (20.0-44.0); MEAN CORPUSCULAR HEMOGLOBIN 35 PG (26.0-33.0); MEAN CORPUSCULAR HGB CONC 33 g/dl (31.0-36.0); MEAN CORPUSCULAR VOLUME 107 fL (82-100); MONOCYTES # (AUTO) 0.6 /CMM (0.1-1.30); MONOCYTES % (AUTO) 6.9 % (2.0-12.0); NEUTROPHILS # (AUTO) 6.3 /CMM (1.8-8.9); NEUTROPHILS % (AUTO) 75.2 % (43.0-81.0); PLATELET COUNT (AUTO) 129 /CMM (150-450); RDW COEFFICIENT OF VARIATION 15.8 (11.5-15.0); RED BLOOD CELL COUNT(AUTO) 3.03 MIL/uL (4.0-5.2); WHITE BLOOD COUNT (AUTO) 8.4 K/uL (4.3-11.0)
[2016-11-22 22:00] VITALS: BP 114/81
[2016-11-22 22:07] LABS: GLUCOSE,BODY FLUID 98 mg/dL; PROTEIN, BODY FLUID 2.1 G/DL
--- NOTE | 2016-11-22 22:15 | NUR ---
RN NOTES PT VERBALIZING THAT SHE WANTED TO GO HOME NOW BECAUSE SHE CAN'T GET DILAUDID FOR PAIN. PT IS ASKING FOR COPY OF ALL HER MEDICAL RECORDS WHEN SHE GO. IT WAS EXPLAINED THAT SHE CAN'T BRING ANY RECORD BECAUSE SHE'S GOING AMA. PAGED EPIC MINERAL ECONOMIST TO NOTIFY.
--- NOTE | 2016-11-22 22:25 | NUR ---
RN NOTES SPOKE TO RONA GHOSH, MADE HER AWARE THAT PT IS ASKING FOR DILAUDID, AND WAS DECLINED, AND MADE HER AWARE PT IS PLANNING TO GO AMA. NO NEW ORDERS RECEIVED, KEEP PT ON NORCO PRN.
[2016-11-22 22:27] LABS: BAND % (MANUAL) 7 % (0.0-5.0); EOSINOPHILS % (MANUAL) 3 % (0-4); LYMPHOCYTES % (MANUAL) 14 % (16-48); MONOCYTES % (MANUAL) 8 % (0-11.0); NEUTROPHILS % (MANUAL) 68 (42-76)
[2016-11-22 22:28] LABS: ANISOCYTOSIS 1+; PLATELET ESTIMATE DECRE
--- NOTE | 2016-11-22 22:38 | NUR ---
RN NOTES PT MADE AWARE THAT SHE CANNOT HAVE DILAUDID, AND SHE CAN HAVE NORCO FOR PAIN. PT DECIDED TO STAY UNTIL TOMORROW. NORCO 5/325 MG TAB GIVEN FOR 7/10 PAIN ON HER ABDOMEN. WILL CONTINUE TO MONITOR PT.
[2016-11-22 23:40] LABS: APPEARANCE,SPUN,BODY FLUID CLEAR (CLEAR)
[2016-11-22 23:41] LABS: TOTAL VOLUME,BODY FLUID 751 mL; WBC, BODY FLUID 101 /cu. mm. (0-200)
[2016-11-23 00:03] LABS: MACROPHAGES, BODY FLUID 72
[2016-11-23 00:04] LABS: POLYNUCLEAR, BODY FLUID 8 % (0-25)
--- NOTE | 2016-11-23 07:22 | NUR ---
RN NOTES PT ASLEEP IN BED, HOB ELEVATED, NO SOB, NO SIGNS OF DISTRESS AND DISCOMFORT NOTED. APPEARS COMFORTABLE IN BED. PT DID NOT COMPLAIN OF PAIN AFTER TAKING NORCO AND SLEPT WELL. VITAL SIGNS STABLE, AFEBRILE 98.7. NO EPISODE OF NAUSEA AND VOMITING. DUE MEDS GIVEN. ALL NEEDS ATTENDED. ENDORSED TO MORNING RN FOR CONTINUITY OF CARE.
[2016-11-23 07:29] LABS: BASOPHILS % (AUTO) 0.5 % (0.0-2.0); EOSINOPHILS # (AUTO) 0.1 /CMM (0.0-0.7); EOSINOPHILS % (AUTO) 2.4 % (0.0-6.0); HEMATOCRIT 28 % (33-45); HEMOGLOBIN 9.6 g/dL (11.5-14.8); LYMPHOCYTES # (AUTO) 1.2 /CMM (0.8-4.8); LYMPHOCYTES % (AUTO) 23.5 % (20.0-44.0); MEAN CORPUSCULAR HEMOGLOBIN 37 PG (26.0-33.0); MEAN CORPUSCULAR HGB CONC 34 g/dl (31.0-36.0); MEAN CORPUSCULAR VOLUME 108 fL (82-100); MONOCYTES # (AUTO) 0.4 /CMM (0.1-1.30); MONOCYTES % (AUTO) 7.5 % (2.0-12.0); NEUTROPHILS # (AUTO) 3.5 /CMM (1.8-8.9); NEUTROPHILS % (AUTO) 66.1 % (43.0-81.0); PLATELET COUNT (AUTO) 101 /CMM (150-450); RDW COEFFICIENT OF VARIATION 16.2 (11.5-15.0); RED BLOOD CELL COUNT(AUTO) 2.62 MIL/uL (4.0-5.2); WHITE BLOOD COUNT (AUTO) 5.3 K/uL (4.3-11.0)
--- NOTE | 2016-11-23 07:34 | NUR ---
RN AM NOTES PATIENT RECEIVED IN BED ASLEEP, BUT AROUSABLE. AFEBRILE. NO SOB, DISTRESS OR PAIN NOTED. WILL CONTINUE TO MONITOR.
[2016-11-23 07:54] LABS: CALCIUM, SERUM 8.3 mg/dL (8.5-10.1); CREATININE 0.3 mg/dL (0.6-1.3); MAGNESIUM 1.5 mg/dL (1.8-2.4); PHOSPHORUS 5.2 mg/dL (2.5-4.9); POTASSIUM 3.9 mmol/L (3.5-5.1)
[2016-11-23 08:00] VITALS: BP 126/74
[2016-11-23] MEDS: CHLORDIAZEPOXIDE HCL 25 MG CAPSULE PO SCH ×3 (09:52→18:23)
[2016-11-23] MEDS: FOLIC ACID 1 MG TABLET PO SCH (09:52)
[2016-11-23] MEDS: PANTOPRAZOLE 40 MG TABLET.DR PO SCH (09:52)
[2016-11-23] MEDS: THIAMINE HCL 100 MG TABLET PO SCH (09:52)
[2016-11-23] MEDS: VALACYCLOVIR HCL 500 MG TABLET PO SCH (09:52)
[2016-11-23] MEDS ORDERED: Magnesium 1GM/D5W 100ML PREMIX 100 ML IV SCH (11:13)
[2016-11-23] MEDS: HYDROCODONE/APAP 5/325MG 1 EACH TABLET PO PRN ×2 (11:55→18:24)
[2016-11-23] MEDS ORDERED: MAGNESIUM OXIDE 400 MG TABLET PO SCH (12:00)
[2016-11-23 16:00] VITALS: BP 110/75
--- NOTE | 2016-11-23 18:38 | NUR ---
RN PM NOTES PATIENT IN STABLE CONDITION, DISCHARGE PAPERWORK SIGNED, WAITING FOR MOTHER TO COME GET HER. DINNER AND EVENING MEDS TAKEN. PATIENT GETTING DRESSED AND GATHERING PERSONAL BELONGINGS TOGETHER. WILL ENDORSE TO NEXT SHIFT TO FOLLOW UP WITH BELONGINGS CHECKLIST AND DISCONTINUE PIV.
--- NOTE | 2016-11-23 19:28 | NUR ---
DC NOTE PATIENT DISCHARGED FROM HOSPITAL IN STABLE CONDITION WITH HER MOM. DISCONNECT IV AND CUT ID BAND. DC PAPERS SIGNED AND BROUGHT WITH HER. VS WNL.
== END 2016-11-23 19:25 | disposition home or self-care (01) | DRG 432 ==
LOC: ER 18:18 → MED 22:24
PROVIDERS: ADMIT Internal Medicine; ATTEND Internal Medicine
PROC: 0W9G3ZZ Drainage of Peritoneal Cavity, Percutaneous Approach (ICD-10-PCS; principal; 2016-11-23)
DX: K70.30 Alcoholic cirrhosis of liver without ascites (principal); E43 Unspecified severe protein-calorie malnutrition; F33.1 Major depressive disorder, recurrent, moderate; F50.00 Anorexia nervosa, unspecified; Z68.1 Body mass index [BMI] 19.9 or less, adult; F10.20 Alcohol dependence, uncomplicated; F19.10 Other psychoactive substance abuse, uncomplicated; D63.8 Anemia in other chronic diseases classified elsewhere; K70.31 Alcoholic cirrhosis of liver with ascites; D69.59 Other secondary thrombocytopenia; R74.0 Nonspecific elevation of levels of transaminase and lactic acid dehydrogenase [LDH]; F11.90 Opioid use, unspecified, uncomplicated; F17.210 Nicotine dependence, cigarettes, uncomplicated; F43.10 Post-traumatic stress disorder, unspecified; G89.29 Other chronic pain
CPT/HCPCS: 36415; 71010-TC; 76705-TC; 76942-TC; 80048-TC; 80076-TC; 81000-TC; 83690-TC; 83735-TC; 84100-TC; 84443-TC; 84703-TC; 85025-TC; 85730-TC; 87040-TC; 87070-TC; 87081-TC; 89051-TC; A4606; A6253; A6402; J1170; Z7610

== ENCOUNTER 2016-11-24 20:46 | Inpatient (IN) | payer BC ==
[~2016-11-24] VITALS: Ht 147.3 cm; Wt 34.9 kg
--- NOTE | 2016-11-24 21:08 | NUR ---
PT BIB RA S/P SYNCOPAL EPISODE WHILE AT [facility] T[facility]. DENIES PAIN. NAD NOTED. RESP EVEN UNLABORED. SKIN WARM NONDIAPHORETIC. NO HEAD TRAUMA VISIBLE. NO NEURO DEFICITS NOTED. PT A/OX4, BUT REPORTS FEELING TIRED. IN ER BED 11 ON MONITOR.
[2016-11-24] MEDS ORDERED: IV NS 0.9% 500 ML BAG IV ONE (21:30)
[2016-11-24 21:37] LABS: BASOPHILS # (AUTO) 0.1 /CMM (0.0-0.2); BASOPHILS % (AUTO) 0.6 % (0.0-2.0); EOSINOPHILS # (AUTO) 0.1 /CMM (0.0-0.7); EOSINOPHILS % (AUTO) 0.7 % (0.0-6.0); HEMATOCRIT 29 % (33-45); HEMOGLOBIN 9.9 g/dL (11.5-14.8); LYMPHOCYTES # (AUTO) 1.3 /CMM (0.8-4.8); LYMPHOCYTES % (AUTO) 14.7 % (20.0-44.0); MEAN CORPUSCULAR HEMOGLOBIN 36 PG (26.0-33.0); MEAN CORPUSCULAR HGB CONC 34 g/dl (31.0-36.0); MEAN CORPUSCULAR VOLUME 106 fL (82-100); MONOCYTES # (AUTO) 0.6 /CMM (0.1-1.30); MONOCYTES % (AUTO) 6.4 % (2.0-12.0); NEUTROPHILS # (AUTO) 6.7 /CMM (1.8-8.9); NEUTROPHILS % (AUTO) 77.6 % (43.0-81.0); PLATELET COUNT (AUTO) 148 /CMM (150-450); RDW COEFFICIENT OF VARIATION 15.3 (11.5-15.0); RED BLOOD CELL COUNT(AUTO) 2.74 MIL/uL (4.0-5.2); WHITE BLOOD COUNT (AUTO) 8.8 K/uL (4.3-11.0)
[2016-11-24] MEDS ORDERED: IV SET PRIMARY 1 EA INFUS.SET MC ONE ×2 (21:37→22:39)
[2016-11-24] MEDS ORDERED: IV NS 0.9% 500 ML IV ONE (21:37)
[2016-11-24 21:51] LABS: CREATININE 0.4 mg/dL (0.6-1.3); POTASSIUM 3.5 mmol/L (3.5-5.1)
[2016-11-24 21:53] LABS: INR 1.18 (0.87-1.13); PROTHROMBIN TIME 12.4 SECS (9.5-12.7)
[2016-11-24 21:57] LABS: BILIRUBIN,DIRECT 1.2 mg/dL (0.0-0.2); BILIRUBIN,TOTAL 1.5 mg/dL (0.2-1.0); TOTAL PROTEIN, SERUM 7.2 g/dL (6.4-8.2)
[2016-11-24 21:59] LABS: TROPONIN I 0.041 ng/mL (0.00-0.056)
[2016-11-24] MEDS ORDERED: IV NS 0.9% 1,000 ML BAG IV ONE (22:30)
[2016-11-24] MEDS ORDERED: IV NS 0.9% 1,000 ML ONE (22:39)
--- NOTE | 2016-11-24 22:49 | NUR ---
PT REPORTS SHE CANNOT PROVIDE URINE SAMPLE AT THIS TIME. 1L NS IVF INITIATED AT THIS TIME. WILL ASK AGAIN LATER AFTER IV HYDRATION. Addendum: 11/25/16 at 0059 by HFOX PT WAS ASLEEP, EASILY AROUSABLE TO VOICE.
[2016-11-24 23:04] LABS: BAND % (MANUAL) 13 % (0.0-5.0); LYMPHOCYTES % (MANUAL) 15 % (16-48); MONOCYTES % (MANUAL) 10 % (0-11.0); NEUTROPHILS % (MANUAL) 62 (42-76)
--- NOTE | 2016-11-24 23:04 | NUR ---
RESTING COMFORTABLY IN BED 11. VSS.
[2016-11-24 23:05] LABS: PLATELET ESTIMATE DECREASED
[2016-11-24 23:25] LABS: ALCOHOL, BLOOD < 3 mg/dL (0-0)
[2016-11-24 23:31] LABS: SERUM AMMONIA 49 umol/L (11-32)
[2016-11-25] MEDS ORDERED: IV NS 0.9% 1,000 ML IV PRN (00:04)
[2016-11-25] MEDS ORDERED: MAG HYDROX/AL HYDROX/SIMETH 30 ML UDC PO PRN (00:30)
[2016-11-25] MEDS ORDERED: ACETAMINOPHEN 325 MG TABLET PO PRN (00:30)
[2016-11-25] MEDS ORDERED: ONDANSETRON HCL/PF 4 MG/2 ML VIAL IVP PRN (00:30)
[2016-11-25] MEDS ORDERED: Z GUARD REMEDY 2 OZ OINT TP PRN (00:30)
[2016-11-25] MEDS ORDERED: MAGNESIUM HYDROXIDE 30 ML UDC PO PRN (00:30)
--- NOTE | 2016-11-25 00:55 | NUR ---
REPORT GIVEN TO PIPE ELIZONDO FOR ADMISSION, ROOM 307-2
--- NOTE | 2016-11-25 00:56 | NUR ---
PER DR HURLEY, CANCEL ORTHOSTATIC VITAL SIGNS, AND OK TO COLLECT URINE SAMPLE ON THE FLOOR.
[2016-11-25] MEDS ORDERED: IV NS 0.9% 1,000 ML ONE (01:20)
[2016-11-25] MEDS ORDERED: IV SET PRIMARY PUMP SET 1 EA INFUS.SET MC ONE (01:21)
[2016-11-25 01:25] VITALS: BP 135/83
--- NOTE | 2016-11-25 01:25 | NUR ---
PT TRANSPORTED TO 307-2 IN STABLE CONDITION VIA ACLS PROTOCOL
--- NOTE | 2016-11-25 01:56 | NUR ---
YARN PREPARATION SUPERVISOR NOTE ADMITTED 26 YEARS OLD FEMALE FOR ER WITH THE DX OF ALOC BY DR MOHAN. A/O X 2. SPEAKS SLOW. NO SOB, NO DISTRESS OR DISCOMFORT NOTED. DENIES PAIN. H/L IN BABAR#18 G INTACT AND PATENT. PT ABLE TO AMBULATE WITH ASSISTANCE. SKIN ASSESSMENT DONE, PICTURE TAKEN AND PLACE THEM IN THE CHART. STARTED IVF NS @ 75 ML/HR, NO S/S OF INFILTRATION NOTED. SIDE RAILS UP X 2 AND CALL LIGHT WITHIN REACH. VSS. CONTINUE TO MONITOR HER. Addendum: 11/25/16 at 0203 by PIPE HART RN ON TELE SR HR 92.
[2016-11-25 04:00] VITALS: BP 127/86
--- NOTE | 2016-11-25 06:33 | NUR ---
INDUSTRIAL TECHNOLOGY EDUCATION TEACHER NOTE PT IN BED ASLEEP, AROUSABLE. NO DISTRESS OR DISCOMFORT NOTED. DENIES PAIN. IVF INFUSING WELL, NO S/S OF INFILTRATION NOTED. ON TELE SR HR 82. UNABLE TO COLLECT URINE SPECIMEN. SIDE RAILS UP X 2 AND CALL LIGHT WITHIN REACH. WILL ENDORSE TO DAY SHIFT NURSE FOR CONTINUE TO CARE.
[2016-11-25 08:00] VITALS: BP_SYST 100; BP_SYST 104; BP_DIAS 70
--- NOTE | 2016-11-25 08:00 | NUR ---
MS/RN- OPENING PT. IS A&OX4 IN BED, BREATHING UNLABORED ON RA, NO SIGNS OF DISTRESS. PT. HAD BRP WITH ASSIST, PT. WAS INSTRUCTED TO PROVIDE URINE SAMPLE. PT. CALL LIGHT WITHIN REACH, PT. WAS COMPLAINING OF ABDOMINAL PAIN BUT REFUSED PAIN MEDICINE. PT. TEACHING WAS GIVEN FOR PAIN MANAGEMENT AND SAFETY AND PUT ON FALL PRECAUTIONS WILL MONITOR.
[2016-11-25] MEDS ORDERED: PANTOPRAZOLE 40 MG TABLET.DR PO SCH (08:17)
--- NOTE | 2016-11-25 08:35 | NUR ---
WOUND CARE CONSULT: PATIENT SEEN AND SKIN ASSESSMENT DONE. PATIENT DROWSY, INDEPENDENT WITH BED MOBILITY, CONTINENT, JON 17. SEE TODAY'S SKIN ASSESSMENT IN PCS ALONG WITH RECOMMENDATIONS DISCUSSED WITH NURSING STAFF INCLUDING MOISTURE/SKIN PROTECTION AND OFFLOADING ORDERED. MD IN AGREEMENT WITH PLAN OF CARE. Addendum: 11/25/16 at 0837 by MAXIMUS MAR WNDNU Amended: Links added.
[2016-11-25] MEDS ORDERED: NEOMY SULF/BACITRAC ZN/POLY 15 GM TUBE TP SCH (09:00)
[2016-11-25 10:54] LABS: CANNABINOID, URINE NEGATIVE (NEGATIVE); PHENCYCLIDINE SCREEN,URINE NEGATIVE (NEGATIVE)
--- NOTE | 2016-11-25 12:00 | NUR ---
MS/ FUNERAL ASSISTANT PT. WAS DISCHARGED HOME TRANSPORTATION BY CAR ASSISTED BY HER MOTHER. PROVIDED NEW MEDICATION INSTRUCTIONS WITH EDUCATION. PT. WAS INSTRUCTED TO FOLLOW UP WITH PRIMARY CARE DOCTOR IN A WEEK, LEAD MANUFACTURING TECHNICIAN AND, HEPATOLOGY SPECIALIST. PT. IV WAS REMOVED, AND ID BAND. PT. TOOK HER BELONGINGS AND SIGNED BELONGINGS CHECKLIST. PHOTO WAS TAKEN OF SACRAL AREA DUE TO REDNESS.
--- NOTE | 2016-11-25 12:07 | NUR ---
Social Service consult for drug and alcohol use. Per H&P report by Dr. Hernández, pt. is a 26-year-old female with history of alcohol and heroin addiction, alcoholic cirrhosis, anorexia, anxiety. The patient had been sober for one year up until a few weeks ago when she started using heroin and drinking alcohol again. She was admitted to the hospital earlier this week with abdominal distention necessitating paracentesis and was released 2 days ago. Patient return to ED with altered mental status tonight likely secondary to heroin overdose, also noted that slightly elevated ammonia level. NICHOLAS met with pt. bedside. SW is familiar with pt. from a previous admission a couple of months ago. Pt. is A&O x 4. Pt. appeared extremely thin and anxious. Pt. informed SW that she was sober for a few months and last used Heroine three times between Thursday and of last week. Pt. also drinks approximately 3 to 5 shots of vodka daily. Pt. was recently diagnosed with Cirrhosis. Pt. states she does not have an issue and can stop using whenever she wants to. Pt. is currently on Suboxone that she gets at a clinic in [facility]. Pt. states she will go when she is ready to go to treatment. NICHOLAS inquired with pt. as to what triggered her to relapse. Pt. stated, "I think about my dad a lot, and I do not get along with my sisters." Pt. was in treatment two years ago and completed a month in treatment. NICHOLAS encouraged pt. to go to a drug treatment program, however pt. declined. Pt. insisted on wanting to leave the hospital as soon as possible so she can get her Suboxone. [facility] be [facility]. Pt. declined resources to drug/alcohol treatment programs.
--- NOTE | 2016-11-25 14:37 | NUR ---
MS/RN- DISCHARGE BY TAXI PT. WAS DISCHARGED IN STABLE CONDITION. PT. LEFT [facility] BY A TAXI.
== END 2016-11-25 14:30 | disposition home or self-care (01) | DRG 432 ==
LOC: ER 20:48 → TELE 22:44
PROVIDERS: ADMIT Internal Medicine; ATTEND Internal Medicine
DX: K70.31 Alcoholic cirrhosis of liver with ascites (principal); G93.41 Metabolic encephalopathy; E43 Unspecified severe protein-calorie malnutrition; F50.00 Anorexia nervosa, unspecified; D63.8 Anemia in other chronic diseases classified elsewhere; D69.59 Other secondary thrombocytopenia; F17.210 Nicotine dependence, cigarettes, uncomplicated; F10.20 Alcohol dependence, uncomplicated
CPT/HCPCS: 36415; 70450-TC; 71010-TC; 80048-TC; 80076-TC; 80305; 82140-TC; 84484-TC; 84703-TC; 85025-TC; 85730-TC; 87081-TC; A4606; G0480; J7030; J7040; Z7610

== ENCOUNTER 2017-03-25 11:27 | Inpatient (IN) | payer BC ==
[~2017-03-25] VITALS: Ht 149.9 cm; Wt 33.6 kg
--- NOTE | 2017-03-25 11:33 | NUR ---
BIB FROM HOME FOR NAUSEA AND VOMITTING X 10 DAYS. GOWNED PT AWAITING MD ORDER
--- NOTE | 2017-03-25 11:45 | NUR ---
DR STACY AT BEDSIDE FOR EVAL
[2017-03-25] MEDS ORDERED: IV NS 0.9% 1,000 ML BAG IV ONE ×2 (12:00→13:00)
[2017-03-25] MEDS ORDERED: FAMOTIDINE/PF INJ 20 MG/2 ML VIAL IV ONE ×2 (12:00→12:10)
[2017-03-25] MEDS ORDERED: ONDANSETRON HCL/PF 4 MG/2 ML VIAL IVP ONE (12:00)
[2017-03-25 12:06] LABS: BASOPHILS % (AUTO) 0.9 % (0.0-2.0); EOSINOPHILS % (AUTO) 0.4 % (0.0-6.0); HEMATOCRIT 36 % (33-45); LYMPHOCYTES # (AUTO) 0.5 /CMM (0.8-4.8); LYMPHOCYTES % (AUTO) 11.2 % (20.0-44.0); MEAN CORPUSCULAR HEMOGLOBIN 34 PG (26.0-33.0); MEAN CORPUSCULAR HGB CONC 34 g/dl (31.0-36.0); MEAN CORPUSCULAR VOLUME 100 fL (82-100); MONOCYTES # (AUTO) 0.7 /CMM (0.1-1.30); MONOCYTES % (AUTO) 13.9 % (2.0-12.0); NEUTROPHILS # (AUTO) 3.5 /CMM (1.8-8.9); NEUTROPHILS % (AUTO) 73.6 % (43.0-81.0); PLATELET COUNT (AUTO) 244 /CMM (150-450); RDW COEFFICIENT OF VARIATION 14.5 (11.5-15.0); RED BLOOD CELL COUNT(AUTO) 3.56 MIL/uL (4.0-5.2); WHITE BLOOD COUNT (AUTO) 4.7 K/uL (4.3-11.0)
--- NOTE | 2017-03-25 12:06 | NUR ---
RAC #20 IV ACCESS. BLOOD SAMPLE COLLECTED SENT TO LAB
--- NOTE | 2017-03-25 12:07 | NUR ---
EKG IN PROGRESS
[2017-03-25] MEDS ORDERED: ONDANSETRON HCL/PF 4 MG/2 ML VIAL ONE (12:10)
[2017-03-25 12:21] LABS: ALBUMIN 4.8 g/dL (3.4-5.0); BILIRUBIN,DIRECT 4.5 mg/dL (0.0-0.2); BILIRUBIN,TOTAL 6.1 mg/dL (0.2-1.0); CALCIUM, SERUM 9.6 mg/dL (8.5-10.1); CREATININE 0.9 mg/dL (0.6-1.3); TOTAL PROTEIN, SERUM 9.2 g/dL (6.4-8.2)
[2017-03-25 12:22] LABS: POTASSIUM 2.4 mmol/L (3.5-5.1)
--- NOTE | 2017-03-25 12:28 | NUR ---
WAITING ON LABS & HCG BEFORE CT SCANS. IV LINE IN RIGHT AC IS NOT GOOD FOR CTA. PT NEEDS NEW IV LINE, MIKHAIL BROWN IS AWARE.
--- NOTE | 2017-03-25 12:32 | NUR ---
URINE SAMPLE COLLECTED SENT TO LAB
[2017-03-25 12:43] LABS: APPEARANCE,URINE Slightly Cloudy (CLEAR); BILIRUBIN,URINE MODERATE (NEGATIVE); BLOOD, URINE Small Ery/uL (NEGATIVE); COLOR,URINE Yellow (YELLOW); KETONES,URINE >=160 (NEGATIVE); LEUKOCYTE ESTERASE ,URINE Negative (NEGATIVE); NITRITE, URINE Negative (NEGATIVE); PH,URINE 5.5 (5.0-8.0); PROTEIN,URINE >=300 mg/dl (NEGATIVE); UGLUCOSE Negative (NEGATIVE)
[2017-03-25 12:45] LABS: PREGNANCY TEST URINE QUAL NEGATIVE (NEGATIVE)
[2017-03-25 12:49] LABS: BACTERIA,URINE None seen /HPF (None Seen); RBC,URINE 0-3 /HPF (0-2)
[2017-03-25 12:50] LABS: HYALINE CASTS, URINE Few /LPF (None Seen); SQUAMOUS EPITHELIAL CELL,UR Moderate /HPF (None Seen)
[2017-03-25 12:51] LABS: FINE GRANULAR CASTS,URINE Rare /LPF (None Seen)
[2017-03-25] MEDS ORDERED: IOHEXOL-350 100 ML VIAL IV ONE (13:14)
[2017-03-25] MEDS ORDERED: CT SWABBABLE VALVE TRANS SET 1 EA INFUS.SET MC ONE (13:14)
[2017-03-25] MEDS ORDERED: IV NS 0.9% 250 ML IV ONE (13:15)
[2017-03-25] MEDS ORDERED: POTASSIUM CL. PREMIX PERIPHER. 50 ML ONE (13:15)
--- NOTE | 2017-03-25 13:25 | NUR ---
PT IVAN TO CT SCAN
[2017-03-25] MEDS: POTASSIUM CL. PREMIX PERIPHER. 50 ML IV SCH ×7 (13:30→22:53)
[2017-03-25] MEDS ORDERED: POTASSIUM CL. PREMIX PERIPHER. 150 ML ONE (14:40)
--- NOTE | 2017-03-25 15:09 | NUR ---
[facility] PAGED, MAGENTO DEVELOPER
--- NOTE | 2017-03-25 15:30 | NUR ---
[facility] REPAGED
--- NOTE | 2017-03-25 15:42 | NUR ---
CALLED NURSING SUP. FOR TELE BED
--- NOTE | 2017-03-25 16:16 | NUR ---
GAVE REPORT TO NELIDA ELIZONDOOBSTETRICS GYNECOLOGY PHYSICIAN DR DURHAM . TRANSFER VIA ACLS PROTOCOL
--- NOTE | 2017-03-25 16:50 | NUR ---
RN OPENING NOTES RECEIVED PATIENT AWAKE FROM ER. REPORT RECEIVED BY KEVIN ELIZONDO . PATIENT IS LYING DOWN , HOB ELEVATED. PATIENT WAS ADMITTED ON TELEMETRY SR HEART RATE OF 85. IV INTACT AND PATENT. KEPT PATIENT CLEAN AND COMFORTABLE IN BED, CALL LIGHT WITHIN PATIENT REACH, WILL CONTINUE TO MONITOR ACCORDINGLY.
[2017-03-25 17:00] VITALS: BP 104/71
[2017-03-25] MEDS ORDERED: MAGNESIUM HYDROXIDE 30 ML UDC PO PRN (17:00)
[2017-03-25] MEDS ORDERED: ACETAMINOPHEN 325 MG TABLET PO PRN (17:00)
[2017-03-25] MEDS: CLONIDINE HCL 0.1 MG TABLET PO SCH (17:00)
[2017-03-25] MEDS: BUPROPION XL 150 MG TAB.ER.24 PO SCH (17:00)
[2017-03-25] MEDS ORDERED: MAG HYDROX/AL HYDROX/SIMETH 30 ML UDC PO PRN (17:00)
[2017-03-25] MEDS: VALACYCLOVIR HCL 500 MG TABLET PO SCH (17:00)
[2017-03-25] MEDS ORDERED: HYDROCODONE/APAP 5/325MG 1 EACH TABLET PO PRN (17:00)
[2017-03-25] MEDS ORDERED: ONDANSETRON HCL/PF 4 MG/2 ML VIAL IVP PRN (17:00)
[2017-03-25] MEDS: CHLORDIAZEPOXIDE HCL 25 MG CAPSULE PO SCH ×2 (17:00→21:00)
[2017-03-25] MEDS ORDERED: LORAZEPAM 1 MG TABLET PO PRN (17:00)
[2017-03-25] MEDS ORDERED: ZOLPIDEM TARTRATE 5 MG TABLET PO PRN (17:00)
[2017-03-25] MEDS ORDERED: Z GUARD REMEDY 2 OZ OINT TP PRN (17:00)
[2017-03-25] MEDS ORDERED: BUPRENORPHINE HCL SL SCH (17:30)
[2017-03-25] MEDS ORDERED: NALOXONE HCL SL SCH (17:30)
[2017-03-25 17:48] LABS: TROPONIN I 0.031 ng/mL (0.00-0.056)
--- NOTE | 2017-03-25 19:30 | NUR ---
RN NOTES RECEIVED PATIENT IN BED AWAKE, AO X 3, ABLE TO MAKE NEEDS KNOWN. NO ACUTE DISTRESS NOTED. DENIES ANY PAIN AT THIS TIME. IV SITE PATENT, INTACT; FLUSHED. ON LOW BED WITH BILATERAL UPPER SIDE RAILS UP. CALL LIGHT WITHIN EASY REACH. WILL CONTINUE TO MONITOR. Addendum: 03/26/17 at 0156 by NABEEL BLAKE RN TELE READING SINUS 90
--- NOTE | 2017-03-25 19:36 | NUR ---
RN NOTES ALL NEEDS PROVIDED, ATTENDED, AND ANTICIPATED. KEPT PATIENT CLEAN AND COMFORTABLE IN BED. CALL LIGHT WITHIN PATIENT REACH, WILL CONTINUE TO MONITOR ACCORDINGLY. ENDORSED TO NEXT SHIFT RN TO CONTINUE CARE.
[2017-03-25 20:00] VITALS: BP 97/59
[2017-03-25] MEDS ORDERED: IBUPROFEN SUSP 100 MG/5 ML UDC PO PRN (20:00)
[2017-03-25] MEDS: IV NS 0.9% 1,000 ML IV PRN (20:04)
[2017-03-25] MEDS: PANTOPRAZOLE 40 MG VIAL IV SCH (20:25)
--- NOTE | 2017-03-25 21:48 | NUR ---
RN NOTES PER SILVER Reilly NP, ADMINISTER KCL IV ORIGINALLY ORDERED, NOTED AND CARRIED OUT.
[2017-03-26] VITALS: BP 90/53
[2017-03-26] MEDS: POTASSIUM CL. PREMIX PERIPHER. 50 ML IV SCH ×5 (00:22→05:56)
[2017-03-26] MEDS ORDERED: POTASSIUM CL. PREMIX PERIPHER. 100 ML ONE (03:35)
[2017-03-26 04:00] VITALS: BP 88/58
[2017-03-26] MEDS ORDERED: POTASSIUM CL. PREMIX PERIPHER. 50 ML ONE (04:00)
--- NOTE | 2017-03-26 06:28 | NUR ---
RN NOTES PATIENT ASLEEP, EASILY AROUSABLE. RESPIRATIONS EVEN. NO SIGNS OF PAIN NOTED. DUE MEDS GIVEN WITH NO ASE NOTED. NEEDS ATTENDED. SAFETY PRECAUTIONS AND COMFORT MEASURES IN PLACE. WILL GIVE REPORT TO DAY SHIFT FOR CONTINUITY OF CARE.
--- NOTE | 2017-03-26 07:35 | NUR ---
LITHOPLATE MAKER OPENING NOTE PATIENT IS ALERT AND ORIENTED x4. NO PAIN AT THIS TIME. NO SOB OR DISTRESS NOTED. CALL LIGHT WITHIN REACH, SAFETY MEASURES IMPLEMENTED. IV INTACT AND PATENT NO REDNESS OR SWELLING NOTED. ABLE TO COMMUNICATE NEEDS. NPO AT THIS TIME. IV FLUIDS RUNNING AT 75 ML/HR. WILL CONTINUE TO MONITOR
[2017-03-26 07:39] LABS: BASOPHILS % (AUTO) 0.1 % (0.0-2.0); EOSINOPHILS # (AUTO) 0.1 /CMM (0.0-0.7); HEMATOCRIT 25 % (33-45); HEMOGLOBIN 8.8 g/dL (11.5-14.8); LYMPHOCYTES # (AUTO) 0.8 /CMM (0.8-4.8); LYMPHOCYTES % (AUTO) 22.2 % (20.0-44.0); MEAN CORPUSCULAR HEMOGLOBIN 35 PG (26.0-33.0); MEAN CORPUSCULAR HGB CONC 35 g/dl (31.0-36.0); MEAN CORPUSCULAR VOLUME 99 fL (82-100); MONOCYTES # (AUTO) 0.4 /CMM (0.1-1.30); MONOCYTES % (AUTO) 10.8 % (2.0-12.0); NEUTROPHILS # (AUTO) 2.4 /CMM (1.8-8.9); NEUTROPHILS % (AUTO) 64.9 % (43.0-81.0); PLATELET COUNT (AUTO) 145 /CMM (150-450); RDW COEFFICIENT OF VARIATION 14.8 (11.5-15.0); WHITE BLOOD COUNT (AUTO) 3.7 K/uL (4.3-11.0)
[2017-03-26 08:00] VITALS: BP 90/58
[2017-03-26 08:03] LABS: THYROID STIMULATING HORMONE 7.862 uIU/mL (0.358-3.74)
[2017-03-26 08:11] LABS: ALBUMIN 3.2 g/dL (3.4-5.0); BILIRUBIN,TOTAL 4.3 mg/dL (0.2-1.0); CALCIUM, SERUM 8.3 mg/dL (8.5-10.1); CREATININE 0.8 mg/dL (0.6-1.3); MAGNESIUM 1.4 mg/dL (1.8-2.4); PHOSPHORUS 1.2 mg/dL (2.5-4.9); POTASSIUM 3.8 mmol/L (3.5-5.1); TOTAL PROTEIN, SERUM 6.4 g/dL (6.4-8.2)
[2017-03-26] MEDS: CLONIDINE HCL 0.1 MG TABLET PO SCH ×3 (08:17→16:42)
[2017-03-26] MEDS: CHLORDIAZEPOXIDE HCL 25 MG CAPSULE PO SCH ×3 (08:17→16:41)
[2017-03-26] MEDS: VALACYCLOVIR HCL 500 MG TABLET PO SCH (08:17)
[2017-03-26] MEDS: BUPROPION XL 150 MG TAB.ER.24 PO SCH ×2 (08:17→16:41)
[2017-03-26] MEDS: PANTOPRAZOLE 40 MG VIAL IV SCH (09:17)
[2017-03-26] MEDS: IV NS 0.9% 1,000 ML IV PRN (09:24)
[2017-03-26] MEDS: Magnesium 1GM/D5W 100ML PREMIX 100 ML IV SCH ×4 (11:48→15:08)
[2017-03-26 12:00] VITALS: BP 96/51
--- NOTE | 2017-03-26 13:45 | NUR ---
Social service consult requested for alcohol abuse. Pt. is a 26 year old female who was admitted to [facility] for pancreatitis and cirrhosis. NICHOLAS is familiar with pt. from previous admissions. SW met with pt. bedside. Pt. is alert and oriented x 4. Pt. appears younger than stated age and is underweight for her age and height. Pt. resides with her sisters and mother in [place]. Pt. states she is no longer on Suboxone, however drinks approximately 2 to 6 shots of vodka daily. Pt. has been in inpatient treatment before, however states she does not want to go to treatment at this time. Pt. states, its too restricted for her. Pt. has a diagnosis of Depression and is currently taking Wellbutrin. NICHOLAS recommended for pt. to attend therapy and an outpatient alcohol treatment program. Pt. is accepting of getting resources. Pt. denies suicidal/homicidal ideations and visual/auditory hallucinations at this time. Pt. receives a monthly stipend through her father's trust fund. When asked how is her relationship with her sister, pt. states "some days are good, and some days are not so good with them". NICHOLAS to offer resources to pt. prior to being discharged.
[2017-03-26 16:00] VITALS: BP 90/51
[2017-03-26] MEDS ORDERED: K PHOS NEUTRAL 250 MG TABLET PO ONE (16:00)
--- NOTE | 2017-03-26 18:39 | NUR ---
INVESTMENT BROKER CLOSING NOTE PATIENT IS ALERT AND ORIENTED x4. NO PAIN AT THIS TIME. NO SOB OR DISTRESS NOTED. CALL LIGHT WITHIN REACH AT ALL TIMES. SAFETY MEASURES IMPLEMENTED. IV INTACT AND PATENT NO REDNESS OR SWELLING NOTED. CLEAR LIQUID DIET, TOLERATING WELL. ALL DUE MEDICATIONS GIVEN ORDERED. HELD BP MEDICATION DUE TO DECREASED BLOOD PRESSURE. IV FLUIDS RUNNING AT 75 ML/HR. POSSIBLE DISCHARGE IN THE MORNING 7-28. MAGNESIUM AND PHOSPHORUS REPLACED. WILL ENDORSE TO INVESTOR RELATIONS MANAGER NURSE
--- NOTE | 2017-03-26 19:30 | NUR ---
GEOLOGIC TECHNICIAN NOTE: PATIENT RESTING IN BED, NO ACUTE DISTRESS NOTED. BREATHING EVEN AND UNLABORED, NO SOB NOTED. IV TO LAC IN PLACE, INFUSING NS AT 75 ML/HR. BED LOCKED AND IN LOWEST POSITION, CALL LIGHT IN REACH. WILL CONTINUE TO MONITOR.
--- NOTE | 2017-03-26 21:15 | NUR ---
SKIP LOADER NOTE: PATIENT WANTING TO GO HOME TONIGHT, INFORMED THAT THERE IS NO DISCHARGE ORDER AND THAT WE ARE MONITORING LABS FOR ACUTE PANCREATITIS. PATIENT CONTINUES TO STILL WANT TO LEAVE AGAINST MEDICAL ADVICE. EXPLAINED RISK AND BENEFITS FOR LEAVING AMA, BUT CONTINUES TO WANT TO LEAVE. PATIENT SISTER OR MOM TO SENIOUR INSIGHT MANAGER PATIENT. AMA PAPERWORK PRINTED AND SIGNED. IV TO LAC REMOVED, COVERED WITH GAUZE. PRESSURE APPLIED, AND SECURED WITH TAPE. PATIENT PHOTOS TAKEN AND BELONGINGS CHECKED, PATIENT WHEELED DOWNED WITH UNDERWATER WELDER IN STABLE CONDITION.
[2017-03-27] MEDS ORDERED: MULTIVITAMINS,THERAGRAN 1 UDTAB TABLET PO SCH (09:00)
[2017-03-27] MEDS ORDERED: THIAMINE HCL 100 MG TABLET PO SCH (09:00)
[2017-03-27] MEDS ORDERED: FOLIC ACID 1 MG TABLET PO SCH (09:00)
== END 2017-03-26 21:10 | disposition left against medical advice (07) | DRG 438 ==
LOC: ER 11:31 → MED 16:20 → TELE 17:08
PROVIDERS: ADMIT Internal Medicine; ATTEND Internal Medicine
DX: K85.90 Acute pancreatitis without necrosis or infection, unspecified (principal); G93.41 Metabolic encephalopathy; E43 Unspecified severe protein-calorie malnutrition; E87.1 Hypo-osmolality and hyponatremia; E87.2 Acidosis; F50.00 Anorexia nervosa, unspecified; Z68.1 Body mass index [BMI] 19.9 or less, adult; R64 Cachexia; D69.59 Other secondary thrombocytopenia; D63.8 Anemia in other chronic diseases classified elsewhere; E87.6 Hypokalemia; F10.20 Alcohol dependence, uncomplicated; F17.210 Nicotine dependence, cigarettes, uncomplicated; K70.30 Alcoholic cirrhosis of liver without ascites; F11.10 Opioid abuse, uncomplicated; R74.0 Nonspecific elevation of levels of transaminase and lactic acid dehydrogenase [LDH]; E03.9 Hypothyroidism, unspecified; A60.00 Herpesviral infection of urogenital system, unspecified; E80.6 Other disorders of bilirubin metabolism; R16.0 Hepatomegaly, not elsewhere classified; Y90.2 Blood alcohol level of 40-59 mg/100 ml
CPT/HCPCS: 36415; 71010-TC; 80048-TC; 80053-TC; 80061-TC; 80076-TC; 80305; 81000-TC; 83690-TC; 83735-TC; 84100-TC; 84439-TC; 84443-TC; 84480; 84484-TC; 84703-TC; 85025-TC; 87081-TC; A4606; C9113; G0480; J2405; J3475; J3480; J3490; J7030; J7050; Q9967; Z7610

== ENCOUNTER 2017-04-10 17:59 | Inpatient (IN) | payer BC ==
[~2017-04-10] VITALS: Ht 147.3 cm; Wt 36.7 kg
--- NOTE | 2017-04-10 18:00 | NUR ---
PT BIB MOTHER TO ER BED 09. C/O LUQ ABDOMINAL PAIN W/ N/V. HX OF LIVER CIRRHOSIS. STATES SHE IS HAVING A PANCREATITIS FLARE UP. GOWNED AND PLACED ON MONITOR. STABLE VITALS. AWAITING MD CABRERA.
--- NOTE | 2017-04-10 18:18 | NUR ---
DR LEÓN AT BEDSIDE FOR EVAL.
[2017-04-10 18:21] LABS: BASOPHILS % (AUTO) 0.5 % (0.0-2.0); EOSINOPHILS % (AUTO) 0.6 % (0.0-6.0); HEMATOCRIT 27 % (33-45); HEMOGLOBIN 9.1 g/dL (11.5-14.8); LYMPHOCYTES # (AUTO) 0.7 /CMM (0.8-4.8); LYMPHOCYTES % (AUTO) 16.9 % (20.0-44.0); MEAN CORPUSCULAR HEMOGLOBIN 35 PG (26.0-33.0); MEAN CORPUSCULAR HGB CONC 34 g/dl (31.0-36.0); MEAN CORPUSCULAR VOLUME 105 fL (82-100); MONOCYTES # (AUTO) 0.2 /CMM (0.1-1.30); MONOCYTES % (AUTO) 4.7 % (2.0-12.0); NEUTROPHILS % (AUTO) 77.3 % (43.0-81.0); PLATELET COUNT (AUTO) 119 /CMM (150-450); RDW COEFFICIENT OF VARIATION 17.2 (11.5-15.0); RED BLOOD CELL COUNT(AUTO) 2.61 MIL/uL (4.0-5.2); WHITE BLOOD COUNT (AUTO) 3.9 K/uL (4.3-11.0)
[2017-04-10] MEDS ORDERED: ONDANSETRON HCL/PF 4 MG/2 ML VIAL ONE (18:27)
[2017-04-10] MEDS ORDERED: IV NS 0.9% 1,000 ML BAG IV ONE (18:30)
[2017-04-10] MEDS ORDERED: ONDANSETRON HCL/PF 4 MG/2 ML VIAL IVP ONE (18:30)
[2017-04-10 18:36] LABS: ALBUMIN 3.8 g/dL (3.4-5.0); BILIRUBIN,DIRECT 7.1 mg/dL (0.0-0.2); BILIRUBIN,TOTAL 8.9 mg/dL (0.2-1.0); CALCIUM, SERUM 8.9 mg/dL (8.5-10.1); CREATININE 0.5 mg/dL (0.6-1.3); POTASSIUM 3.1 mmol/L (3.5-5.1); TOTAL PROTEIN, SERUM 7.4 g/dL (6.4-8.2)
--- NOTE | 2017-04-10 18:38 | NUR ---
PT STILL UNABLE TO PROVIDE URINE SPECIMEN AT THIS TIME.
[2017-04-10] MEDS ORDERED: HYDROCODONE/APAP 5/325MG 1 EACH TABLET ONE (18:45)
[2017-04-10] MEDS ORDERED: BUPR150T5 PO (18:59)
[2017-04-10] MEDS ORDERED: BUPR1FIL SL (18:59)
[2017-04-10] MEDS ORDERED: HYDROCODONE/APAP 5/325MG 1 EACH TABLET PO ONE (19:00)
[2017-04-10] MEDS ORDERED: POTASSIUM CL. PREMIX PERIPHER. 50 ML IV ONE (19:14)
--- NOTE | 2017-04-10 19:16 | NUR ---
CALLED [employer], GREY GOODS MARKER WAS PAGED.
[2017-04-10] MEDS ORDERED: HYDROMORPHONE 1 MG/1 ML DISP.SYRIN ONE (19:26)
[2017-04-10] MEDS ORDERED: POTASSIUM CL. PREMIX PERIPHER. 50 ML ONE (19:27)
[2017-04-10] MEDS ORDERED: HYDROMORPHONE 1 MG/1 ML DISP.SYRIN IV ONE (19:30)
--- NOTE | 2017-04-10 19:36 | NUR ---
PU/S TECH AT BEDSIDE FOR GALLBLADDER ULTRASOUND.
--- NOTE | 2017-04-10 19:41 | NUR ---
DR LEÓN ON THE PHONE WITH DR CASTRO.
--- NOTE | 2017-04-10 19:45 | NUR ---
PATIENT WILL BE ADMITED INTO ROOM 312-2.
--- NOTE | 2017-04-10 19:57 | NUR ---
REPORT GIVEN TO VASQUEZ. PT AWAITING TRANSFER TO FLOOR.
[2017-04-10] MEDS ORDERED: CLONIDINE HCL 0.1 MG TABLET PO PRN (20:19)
[2017-04-10 20:30] VITALS: BP 90/58
[2017-04-10] MEDS ORDERED: Z GUARD REMEDY 2 OZ OINT TP PRN (20:30)
[2017-04-10] MEDS ORDERED: PHARMACY ADD 1 AMP MVI TO IVF DAILY ONE BAG XX PRN (20:30)
[2017-04-10] MEDS ORDERED: MAGNESIUM HYDROXIDE 30 ML UDC PO PRN (20:30)
[2017-04-10] MEDS ORDERED: MAG HYDROX/AL HYDROX/SIMETH 30 ML UDC PO PRN (20:30)
[2017-04-10] MEDS ORDERED: ZOLPIDEM TARTRATE 5 MG TABLET PO PRN (20:30)
[2017-04-10] MEDS ORDERED: MVI ADULT 10ML VIAL = 1AMP 10 ML in IV D5/ 0.9% NACL 1,000 ML IV ONE (21:00)
--- NOTE | 2017-04-10 21:00 | NUR ---
MS RN NOTE: RECEIVED PATIENT FROM ER, NO ACUTE DISTRESS NOTED. BREATHING EVEN AND UNLABORED, NO SOB NOTED. IV TO LFA IN PLACE. ORIENTED PATIENT TO ROOM AND USE OF CALL LIGHT. BED LOCKED AND IN LOWEST POSITION, CALL LIGHT IN REACH. WILL CONTINUE TO MONITOR.
--- NOTE | 2017-04-10 22:30 | NUR ---
MS RN NOTE: PATIENT SEEN BY DR. CASTRO AND EXPLAINED TO PATIENT THAT SHE IS ONLY ABLE TO GET NORCO AND NOT DILAUDID. PATIENT TO BE SEEN BY PAIN MANAGEMENT MD TO EVALUATE ADEQUATE PAIN MANAGEMENT. WILL CONTINUE TO MONITOR.
[2017-04-10] MEDS: Folic acid 1 MG in IV D5W 50 ML IV SCH (22:31)
[2017-04-10] MEDS: Thiamine 100 MG in IV D5W 50 ML IV SCH (22:31)
[2017-04-10] MEDS: IV D5/ 0.9% NACL 1,000 ML IV PRN (22:33)
[2017-04-10] MEDS: CHLORDIAZEPOXIDE HCL 25 MG CAPSULE PO SCH (22:39)
[2017-04-10] MEDS: HYDROCODONE/APAP 5/325MG 1 EACH TABLET PO PRN (22:39)
[2017-04-10] MEDS: ONDANSETRON HCL/PF 4 MG/2 ML VIAL IVP PRN (23:21)
[2017-04-11] VITALS (14 sets, daily range): BP systolic 80–96; BP diastolic 48–69
--- NOTE | 2017-04-11 06:05 | NUR ---
MS RN NOTE: PATIENT RESTING IN BED, NO ACUTE DISTRESS NOTED. BREATHING EVEN AND UNLABORED, NO SOB NOTED. IV TO LFA IN PLACE. BED LOCKED AND IN LOWEST POSITION, CALL LIGHT IN REACH. WILL ENDORSE TO DAY NURSE TO CONTINUE WITH PLAN OF CARE.
[2017-04-11] MEDS: HYDROCODONE/APAP 5/325MG 1 EACH TABLET PO PRN (06:48)
[2017-04-11] MEDS: ONDANSETRON HCL/PF 4 MG/2 ML VIAL IVP PRN ×2 (06:48→17:02)
[2017-04-11 07:30] LABS: BASOPHILS % (AUTO) 0.2 % (0.0-2.0); EOSINOPHILS # (AUTO) 0.1 /CMM (0.0-0.7); EOSINOPHILS % (AUTO) 2.5 % (0.0-6.0); LYMPHOCYTES # (AUTO) 1.1 /CMM (0.8-4.8); LYMPHOCYTES % (AUTO) 48.9 % (20.0-44.0); MEAN CORPUSCULAR HEMOGLOBIN 35 PG (26.0-33.0); MEAN CORPUSCULAR HGB CONC 35 g/dl (31.0-36.0); MEAN CORPUSCULAR VOLUME 102 fL (82-100); MONOCYTES # (AUTO) 0.1 /CMM (0.1-1.30); MONOCYTES % (AUTO) 5.3 % (2.0-12.0); NEUTROPHILS % (AUTO) 43.1 % (43.0-81.0); PLATELET COUNT (AUTO) 59 /CMM (150-450); RDW COEFFICIENT OF VARIATION 17.6 (11.5-15.0); WHITE BLOOD COUNT (AUTO) 2.3 K/uL (4.3-11.0)
--- NOTE | 2017-04-11 07:30 | NUR ---
RN OPENING NOTES RECEIVED PT. IN BED SLEEPING, WAKE UP EASILY. PT. IS A&OX4. NO SOB, BREATHING ON ROOM AIR UNLABORED. NO S/S OF ACUTE DISTRESS. IV FLUIDS RUNNING AT 100 ML/HR. BED IS IN LOW POSITION, 2 SIDE RAILS UP, AND INSTRUCTED PT. TO USE CALL LIGHT FOR ASSISTANCE.
[2017-04-11 07:55] LABS: HEMOGLOBIN 6.7 g/dL (11.5-14.8)
[2017-04-11 07:56] LABS: HEMATOCRIT 19 % (33-45)
--- NOTE | 2017-04-11 07:57 | NUR ---
RN NOTES LAB CALLED TO REPORT H&H. HGB 6.7, HCT 19, AND PLT. 59,000.
[2017-04-11 07:58] LABS: CALCIUM, SERUM 6.6 mg/dL (8.5-10.1); CREATININE 0.6 mg/dL (0.6-1.3); PHOSPHORUS 3.1 mg/dL (2.5-4.9)
[2017-04-11 08:03] LABS: MAGNESIUM 0.8 mg/dL (1.8-2.4); POTASSIUM 2.7 mmol/L (3.5-5.1)
--- NOTE | 2017-04-11 08:05 | NUR ---
RN NOTES RECEIVED CRITICAL LABS POTASSIUM 2.7, MAGNESIUM 0.8.
--- NOTE | 2017-04-11 08:10 | NUR ---
RN NOTES NOTIFIED MD OF CRITICAL LAB VALUES. NEW ORDERS WERE GIVEN FOR BLOOD TRANSFUSION, REPLACE MAGNESIUM, AND POTASSIUM.
[2017-04-11] MEDS ORDERED: BUPRENORPHINE HCL SL SCH (09:00)
[2017-04-11] MEDS ORDERED: NALOXONE HCL SL SCH (09:00)
[2017-04-11] MEDS: PANTOPRAZOLE 40 MG TABLET.DR PO SCH (09:24)
[2017-04-11] MEDS: buPROPion SR 150 MG TABLET.ER PO SCH ×2 (09:24→17:07)
[2017-04-11] MEDS: CYANOCOBALAMIN 500 MCG TABLET PO SCH (09:24)
[2017-04-11] MEDS: CHLORDIAZEPOXIDE HCL 25 MG CAPSULE PO SCH ×4 (09:24→21:15)
[2017-04-11] MEDS ORDERED: POTASSIUM CHLORIDE 20 MEQ TAB.PRT.SR PO ONE (09:30)
[2017-04-11 09:36] LABS: BAND % (MANUAL) 1 % (0.0-5.0); EOSINOPHILS % (MANUAL) 2 % (0-4); LYMPHOCYTES % (MANUAL) 48 % (16-48); MONOCYTES % (MANUAL) 3 % (0-11.0); NEUTROPHILS % (MANUAL) 46 (42-76)
[2017-04-11] MEDS: HYDROMORPHONE 1 MG/1 ML DISP.SYRIN IV PRN ×3 (09:43→20:35)
[2017-04-11] MEDS: Magnesium 1GM/D5W 100ML PREMIX 100 ML IV SCH ×4 (09:45→13:27)
[2017-04-11] MEDS: IV D5/ 0.9% NACL 1,000 ML IV PRN (09:45)
--- NOTE | 2017-04-11 19:33 | NUR ---
RN CLOSING NOTES PT. IN BED WITH HEAD OF BED UP, A&OX4. NO SOB, BREATHING ON ROOM AIR UNLABORED. NO S/S OF ACUTE DISTRESS. IV FLUIDS RUNNING AT 150 ML/HR. MAGNESIUM , AND POTASSIUM WAS REPLACED. BED IS IN LOW POSITION, 2 SIDE RAILS UP, AND INSTRUCTED PT. TO USE CALL LIGHT FOR ASSISTANCE. PT. FINISHED ONE UNIT OF PACKED RED BLOOD CELLS WITHOUT COMPLICATIONS. ORDERED AND ENDORSED 2ND UNIT OF PACKED RBC'S TO CONTRACT ADMIN NURSE.
--- NOTE | 2017-04-11 20:00 | NUR ---
RN NOTES PATIENT IN BED, ALERT AND ORIENTED X4, ANXIOUS, NO DISTRESS, COMPLAINING OF ABDOMINAL PAIN OF 7/10, WILL BE GIVEN DILAUDID WHEN DUE IN HALF HOUR, PREOCCUPIED WITH FOOD, MAKING GROCERY LIST, LEFT FA PERIPHERAL LINE IS INFUSING WELL, HAS STANDING ORDER TO INFUSE PRBC 1 UNIT. REMINDED PATIENT OF NPO STATUS, PATIENT VERBALIZED UNDERSTANDING, NEEDS ATTENDED, CALL LIGHT WITHIN REACH.
[2017-04-11] MEDS: Folic acid 1 MG in IV D5W 50 ML IV SCH (20:13)
[2017-04-11] MEDS: Thiamine 100 MG in IV D5W 50 ML IV SCH (21:15)
--- NOTE | 2017-04-11 22:28 | NUR ---
RN NOTES BLOOD TRANSFUSION FOR 1 UNIT PRBC STARTED.
[2017-04-12 00:10] VITALS: BP 95/66
[2017-04-12] MEDS: HYDROMORPHONE 1 MG/1 ML DISP.SYRIN IV PRN ×6 (00:28→23:23)
--- NOTE | 2017-04-12 00:32 | NUR ---
RN NOTES BLOOD TRANSFUSION ONGOING, NO REACTIONS NOTED, COMPLAINING OF EPIGASTRIC PAIN OF 9/10 GIVEN DILAUDID 1 MG IVP, BP 95/66 HR 94. WILL CONTINUE TO MONITOR.
[2017-04-12 01:02] VITALS: BP 94/66
--- NOTE | 2017-04-12 01:02 | NUR ---
RN NOTES BLOOD TRANSFUSION COMPLETED, PRBC 1 UNIT OR 350 CC INPUT, NO ASE NOTED, BP REMAINED LOW 94/66 HR 88. GIVEN ZOFRAN, COMPLAINING OF NAUSEA, NO EMESIS NOTED. WILL CONTINUE TO MONITOR.
[2017-04-12] MEDS: ONDANSETRON HCL/PF 4 MG/2 ML VIAL IVP PRN ×2 (01:06→08:57)
[2017-04-12] MEDS: IV D5/ 0.9% NACL 1,000 ML IV PRN ×2 (03:04→12:30)
[2017-04-12] MEDS: LORAZEPAM 1 MG TABLET PO PRN ×2 (03:14→14:11)
--- NOTE | 2017-04-12 03:32 | NUR ---
RN NOTES COMPLAINING OF ANXIETY, PATIENT HAVING ALCOHOL WITHDRAWAL, GIVEN ATIVAN 2 MG PO, MADE COMFORTABLE, WILL CONTINUE TO MONITOR.
--- NOTE | 2017-04-12 06:49 | NUR ---
RN NOTES PATIENT IS ALERT AND AWAKE, NO SOB, NO RESPIRATORY DISTRESS, ANXIOUS FOR THE NEXT DILAUDID. COMPLAINING OF EPIGASTRIC PAIN OF 8/10, GIVEN DILAUDID 1 MG IVP PRN ROUND THE CLOCK, BEING MONITORED FOR SEDATION AND RESPIRATORY DISTRESS, REMAINED AWAKE DURING THE NIGHT. RECEIVED PRBC 1 UNIT WITH NO ADVERSE SIDE EFFECTS. ALL DUE MEDICATIONS GIVEN, NEEDS ATTENDED, CALL LIGHT WITHIN REACH.
[2017-04-12 07:03] LABS: BASOPHILS % (AUTO) 0.5 % (0.0-2.0); EOSINOPHILS # (AUTO) 0.1 /CMM (0.0-0.7); EOSINOPHILS % (AUTO) 4.4 % (0.0-6.0); HEMATOCRIT 32 % (33-45); HEMOGLOBIN 10.9 g/dL (11.5-14.8); LYMPHOCYTES # (AUTO) 0.8 /CMM (0.8-4.8); LYMPHOCYTES % (AUTO) 35.3 % (20.0-44.0); MEAN CORPUSCULAR HEMOGLOBIN 32 PG (26.0-33.0); MEAN CORPUSCULAR HGB CONC 35 g/dl (31.0-36.0); MEAN CORPUSCULAR VOLUME 94 fL (82-100); MONOCYTES # (AUTO) 0.1 /CMM (0.1-1.30); MONOCYTES % (AUTO) 5.1 % (2.0-12.0); NEUTROPHILS # (AUTO) 1.2 /CMM (1.8-8.9); NEUTROPHILS % (AUTO) 54.7 % (43.0-81.0); PLATELET COUNT (AUTO) 54 /CMM (150-450); RDW COEFFICIENT OF VARIATION 22.3 (11.5-15.0); RED BLOOD CELL COUNT(AUTO) 3.36 MIL/uL (4.0-5.2); WHITE BLOOD COUNT (AUTO) 2.1 K/uL (4.3-11.0)
--- NOTE | 2017-04-12 07:23 | NUR ---
RN NOTES RECEIVED PT. PT IS STABLE AND AWAKE IN BED, A/O X 4. NO S/S OF SOB OR DISTRESS. PT C/O EPIGASTRIC PAIN, WILL CONTINUE PAIN MANAGEMENT INTERVENTIONS. IV ACCESS LOCATED ON LEFT WRIST 20G, RUNNING D5NS AT 150 ML/HR. SAFETY MEASURES IN PLACE, CALL LIGHT WITHIN REACH. WILL CONTINUE TO MONITOR.
[2017-04-12 07:32] LABS: CALCIUM, SERUM 8.1 mg/dL (8.5-10.1); CREATININE 0.6 mg/dL (0.6-1.3); MAGNESIUM 1.3 mg/dL (1.8-2.4); PHOSPHORUS 1.6 mg/dL (2.5-4.9); POTASSIUM 3.4 mmol/L (3.5-5.1)
[2017-04-12 08:00] VITALS: BP 91/54
[2017-04-12] MEDS ORDERED: POTASSIUM CHLORIDE 20 MEQ TAB.PRT.SR PO ONE (08:30)
[2017-04-12] MEDS: CYANOCOBALAMIN 500 MCG TABLET PO SCH (08:56)
[2017-04-12] MEDS: PANTOPRAZOLE 40 MG TABLET.DR PO SCH (08:56)
[2017-04-12] MEDS: CHLORDIAZEPOXIDE HCL 25 MG CAPSULE PO SCH ×4 (08:56→20:58)
[2017-04-12] MEDS: buPROPion SR 150 MG TABLET.ER PO SCH ×2 (08:56→16:28)
[2017-04-12] MEDS: Magnesium 1GM/D5W 100ML PREMIX 100 ML IV SCH ×4 (08:57→14:01)
[2017-04-12 10:00] LABS: EOSINOPHILS % (MANUAL) 3 % (0-4); LYMPHOCYTES % (MANUAL) 32 % (16-48); MONOCYTES % (MANUAL) 3 % (0-11.0); NEUTROPHILS % (MANUAL) 61 (42-76)
[2017-04-12] MEDS ORDERED: NEUTRA PHOS 1 POWD.PACKET PO ONE (11:30)
--- NOTE | 2017-04-12 14:55 | NUR ---
RN NOTES PATIENT'S MAGNESIUM, POTASSIUM AND PHOSPHORUS REPLACED. WILL CONTINUE TO MONITOR PATIENT AND LABS.
[2017-04-12 16:32] VITALS: BP 107/79
--- NOTE | 2017-04-12 18:24 | NUR ---
RN CLOSING NOTES PT IS IN ROOM, AWAKE AND STABLE. NO S/S OF RESPIRATORY DISTRESS. PT FREQUENTLY C/O PAIN IN EPIGASTRIC AREA. IV PRN PAIN MEDICATION EDITED FROM Q4H TO Q6H PER MD ORDER. PATIENT ACCIDENTLY REMOVED IV ACCESS, ORDER FOR MIDLINE INSERTION PLACED, MD AWARE. PT ATTEMPTED TO LEAVE AMA, BUT WAS CONVINCED TO STAY BY MULTIPLE NURSES. REQUESTING ONE-TO-ONE SITTER FOR PATIENT DUE TO SUSPECTED MENTAL ALTERATION. SAFETY MEASURES IN PLACE. NURSE BESIDE HER ROOM. WILL ENDORSE TO DIRECTOR OF CARDIAC CATH LAB FOR [facility].
--- NOTE | 2017-04-12 19:30 | NUR ---
MS RN OPENING NOTES: PATIENT IN BED, AOX3, ON ROOM AIR, BREATHING EVEN AND UNLABORED. APPEARS ANXIOUS. NOTED SPEECH TO BE SLOWED. PIV RECENTLY PULLED OUT BY ACCIDENT BY PATIENT. MIDLINE NURSE CONTACTED FOR MIDLINE INSERTION. PROVIDED FOR COMFORT AND SAFETY. WILL CONT TO MONITOR.
--- NOTE | 2017-04-12 19:44 | NUR ---
RN NOTES: MIDLINE NURSECHOLO, RN, AT BEDSIDE TO INSERT MIDLINE ACCESS.
--- NOTE | 2017-04-12 19:57 | NUR ---
RN NOTES: NEW MIDLINE ACCESS OVER LEFT UPPER ARM, G 20 INSERTED BY MIKHAIL EMMANUEL. WITH GOOD BLOOD RETURN.
[2017-04-12 20:00] VITALS: BP 107/79
[2017-04-12] MEDS: THIAMINE HCL 100 MG TABLET PO SCH (20:58)
[2017-04-12] MEDS: FOLIC ACID 1 MG TABLET PO SCH (20:58)
[2017-04-12 23:15] VITALS: BP 112/85
[2017-04-12] MEDS ORDERED: HYDROMORPHONE 1 MG/1 ML DISP.SYRIN ONE (23:20)
[2017-04-13] MEDS ORDERED: HYDROMORPHONE 1 MG/1 ML DISP.SYRIN IV PRN
[2017-04-13] MEDS: LORAZEPAM 1 MG TABLET PO PRN ×2 (03:23→08:44)
[2017-04-13] MEDS: IV D5/ 0.9% NACL 1,000 ML IV PRN ×2 (03:26→18:58)
--- NOTE | 2017-04-13 03:35 | NUR ---
RN NOTES: PATIENT NOW APPEARS ANXIOUS, STARTS CRYING AND SAYING THAT SHE WILL "GET OUT OF HERE". PATIENT STARTED PACING AROUND THE ROOM, AND KEEPS ASKING FOR HER IV PAIN MEDICATION. REMINDED HER WHEN NEXT TIME IS DUE. PATIENT IS DISTRACTIBLE, BUT KEEPS PACING AROUND THE ROOM AND ASKING FOR SOMETHING TO HELP HER REST. GUIDED PATIENT BACK TO BED AND ADMINISTERED ATIVAN 2 MG PO PRN. MONITORED CLOSELY. WILL CONT TO MONITOR.
--- NOTE | 2017-04-13 04:46 | NUR ---
RN NOTES: PATIENT APPEARS TO BE LESS CONFUSED, MORE ALERT, KNOWS THAT SHE IS IN [facility], BUT WITH MORE MARKED DRUG SEEKING BEHAVIOR, KEEPS WATCHING THE CLOCK AND ASKING IF IT IS ALREADY TIME FOR HER PAIN MEDS. PATIENT APPEARS CALM, BODY POSITION IS RELAXED IN BED, NO FACIAL GRIMACE NOTED.
[2017-04-13 05:00] VITALS: BP 129/94
[2017-04-13] MEDS ORDERED: HYDROMORPHONE 1 MG/1 ML DISP.SYRIN ONE (05:07)
[2017-04-13] MEDS: HYDROMORPHONE 1 MG/1 ML DISP.SYRIN IV PRN ×2 (05:18→22:26)
--- NOTE | 2017-04-13 05:24 | NUR ---
RN NOTES PATIENT COMPLAINS OF 9/10 PAIN OVER ABDOMEN, ADMINISTERED DILAUDID 1 MG IV PRN. PATIENT IN BED. PROVIDED FOR COMFORT AND SAFETY.
--- NOTE | 2017-04-13 06:31 | NUR ---
MS RN CLOSING NOTES: PATIENT IN BED, AOX2, ON ROOM AIR, BREATHING EVEN AND UNLABORED. STILL APPEARS TO BE HAVING DISORGANIZED THOUGHTS AND DRUG SEEKING BEHAVIOR, WITH PERIODS OF CONFUSION. BABAR MIDLINE INTACT AND INFUSING WELL WITH D5 NS RUNNING AT 150 ML/HR. DUE MEDS GIVEN. PROVIDED FOR COMFORT AND SAFETY. BED IN LOWEST AND LOCKED POSITION, SIDERAILS UP X2. WILL ENDORSE TO AM RN FOR KAUSHAL.
[2017-04-13] MEDS: PANTOPRAZOLE 40 MG TABLET.DR PO SCH (06:50)
--- NOTE | 2017-04-13 07:20 | NUR ---
MS RN NOTES PATIENT STANDING IN FRONT OT THE ROOM, APPEARS ANXIOUS, WITH CONFUSION. BREATHING EVEN AND NON LABORED, NO SOB. ASSISTED PATIENT TO GO BACK INSIDE HER ROOM, PER PATIENT SHE WANTS TO LEAVE AND GO HOME. NO C/O PAIN AT THIS TIME. REMINDED PATIENT THAT SHE IS IN THE HOSP FOR TREATMENT OF HER CURRENT CONDITION. PLACE CALL LIGHT WITHIN REACH. WILL CONT TO MONITOR.
[2017-04-13 08:00] VITALS: BP 117/80
[2017-04-13 08:15] LABS: CALCIUM, SERUM 9.1 mg/dL (8.5-10.1); CREATININE 0.5 mg/dL (0.6-1.3); PHOSPHORUS 2.2 mg/dL (2.5-4.9); POTASSIUM 3.8 mmol/L (3.5-5.1)
[2017-04-13] MEDS: CYANOCOBALAMIN 500 MCG TABLET PO SCH (08:44)
[2017-04-13] MEDS: buPROPion SR 150 MG TABLET.ER PO SCH ×2 (08:44→17:00)
[2017-04-13] MEDS: CHLORDIAZEPOXIDE HCL 25 MG CAPSULE PO SCH ×4 (08:44→21:53)
--- NOTE | 2017-04-13 08:45 | NUR ---
GIVEN ATIVAN 2MG PO PRN FOR ANXIETY, 1:1 SITTER AT THE BEDSIDE. WILL CONT TO MONITOR.
--- NOTE | 2017-04-13 09:30 | NUR ---
PATIENT IN BED, ANXIETY DECREASED, APPEARS CALM. DR. DURHAM WAS INFORMED BY THE CUCO-NURSE REGARDING PATIENTS ANXIETY BEHAVIOR.
--- NOTE | 2017-04-13 10:15 | NUR ---
PATIENT IS SEEN BY GOLD-PATIENT REGISTRATION REPRESENTATIVE, PATIENT IS UNSAFE TO GO HOME AT THIS TIME, RECOMMENDS PSYCH CONSULT. CHARGE NURSE IS AWARE.
--- NOTE | 2017-04-13 10:37 | NUR ---
PATIENT WITH UNCONTROLLED BEHAVIOR, RUN TO THE ELEVATOR AND TRYING TO LEAVE THE HOSP. UNCOOPERATIVE AND SCREAMING TO THE NURSES. CALLED SPOKE TO DR. DURHAM, PSYCH WILL BE CONSULTED. GAS ANALYST PATIENT BACK TO THE ROOM, SAFETY MEASURES PROVIDED.
--- NOTE | 2017-04-13 10:42 | NUR ---
Social service consult requested by Dr. Yuan for detox program. Pt. was admitted to [facility] for Pancreatitis. NICHOLAS met with pt. bedside. Pt. is alert and oriented x 2. Pt. appears disheveled and very lethargic. Pt. mumbles most of her words and SW is able to comprehend a few words at a time. Pt. was sitting on her bed with her street clothes and states she is ready to leave. NICHOLAS encouraged pt. to stay as she is not medically cleared and very weak to be leave the hospital. Pt. has a sitter bedside. NICHOLAS is familiar with pt. from several previous admissions. Pt. was last admitted to [facility] on 03/26/17 when she left AMA. Pt. is an avid alcoholic and drinks vodka. Pt. is also a heroin user and use to take Suboxone but not anymore. NICHOLAS encouraged pt. to go to detox program, however pt. refused. NICHOLAS gave pt. the following resources: List of Drug and Alcohol Treatments, List of Medical Detoxification programs, Residential alcohol and drug treatment programs, list of outpatient treatment programs, Co-occurring outpatient Treatment programs and listing of 12-Step Meeting Directory. MIKHAIL Garcia informed NICHOLAS that pt's mother was called regarding pt. wanting to go home, however pt's mother doesn't want pt. home. NICHOLAS also informed Eduardogilberto Ray and MIKHAIL Garcia to have pt. be evaluated by psychiatry due to pt. unable to care for self at this time.
--- NOTE | 2017-04-13 11:15 | NUR ---
PATIENT IS SEEN BY DR. BRANDT FOR CONSULT, CRISIS TEAM TO EVAL PATIENT.
[2017-04-13] MEDS: QUETIAPINE FUMARATE 25 MG TABLET PO PRN (11:17)
--- NOTE | 2017-04-13 11:20 | NUR ---
GIVEN SEROQUEL 25MG PO PRN FOR AGITATION. 1:1 SITTER AT THE BEDSIDE.
[2017-04-13] MEDS ORDERED: K PHOS NEUTRAL 250 MG TABLET PO ONE (12:00)
--- NOTE | 2017-04-13 12:48 | NUR ---
PATIENT IS SEEN BY CRISIS TEAM/MIKALA CRUZ FOR EVAL. PATIENT TO BE ON 5150 PER MIKALA.
[2017-04-13 18:12] VITALS: BP 111/59
--- NOTE | 2017-04-13 19:06 | NUR ---
MS RN CLOSING NOTES PATIENT IN BED, ON ROOM AIR, NO SOB. PATIENT IS ON 5150 ORDERED, 1:1 SITTER AT THE BEDSIDE. SLEEPING AT THIS TIME, AROUSES EASILY. WILL ENDORSE TO [employer] RN FOR CONTINUITY OF CARE.
--- NOTE | 2017-04-13 19:30 | NUR ---
MS SUPERVISOR [employer] INITIAL NOTES RECEIVED PT IN BED RESTING WITH EYES CLOSED, BREATHING EVEN AND NON-LABORED NOT IN ANY ACUTE DISTRESS NOTED. IVF STILL INFUSING NO REDNESS OR INFILTRATION NOTED. SITTER AT THE BEDSIDE FOR SAFETY. WILL CONTINUE TO MONITOR.
[2017-04-13 20:00] VITALS: BP 111/58
--- NOTE | 2017-04-13 20:15 | NUR ---
BUSINESS EDUCATION INSTRUCTOR/CLOSING NOTES ENDORSE TO ANOTHER NURSE FOR CONTINUITY OF CARE. PT STILL ON 5150 HOLD, SITTER AT THE BEDSIDE FOR SAFETY.
--- NOTE | 2017-04-13 20:16 | NUR ---
RN NOTES RECEIVED PT ASLEEP, BREATHING REGULAR AND UNLABORED, NO SIGNS OF DISTRESS AND DISCOMFORT NOTED, ON ROOM AIR AND TOLERATED WELL. LEFT UPPER ARM MIDLINE INTACT PATENT AND INTACT WITH ONGOING IVF INFUSING WELL. PT ON 5150 HOLD, SITTER AT BEDSIDE FOR SAFETY. KEPT BED IN THE LOWEST POSITION, LOCKED, SIDE RAILS X2 UP WITH CALL LIGHT WITH IN REACH. WILL CONTINUE TO MONITOR PT.
[2017-04-13] MEDS: FOLIC ACID 1 MG TABLET PO SCH (21:53)
[2017-04-13] MEDS: THIAMINE HCL 100 MG TABLET PO SCH (21:53)
[2017-04-13 22:00] VITALS: BP 111/59
--- NOTE | 2017-04-13 22:26 | NUR ---
RN NOTES PT COMPLAINS OF 8/10 ABDOMINAL PAIN, DILAUDID 1 MG GIVEN IV. WILL CONTINUE TO MONITOR PT.
[2017-04-14] MEDS: LORAZEPAM 1 MG TABLET PO PRN (01:23)
--- NOTE | 2017-04-14 01:23 | NUR ---
RN NOTES PT FEELS ANXIOUS, ATIVAN 2MG TABS GIVEN PO AND TOLERATED WELL. WILL CONTINUE TO MONITOR PT.
[2017-04-14] MEDS: IV D5/ 0.9% NACL 1,000 ML IV PRN (02:46)
[2017-04-14] MEDS: HYDROMORPHONE 1 MG/1 ML DISP.SYRIN IV PRN ×2 (04:29→10:35)
--- NOTE | 2017-04-14 04:29 | NUR ---
RN NOTES PT VERBALIZED ABDOMINAL PAIN 04/09, DILAUDID 1 MG GIVEN IV. WILL CONTINUE TO MONITOR PT.
--- NOTE | 2017-04-14 06:51 | NUR ---
RN NOTES PT AWAKE, SITTING IN HER BED, NO SOB, NOT IN DISTRESS, ON ROOM AIR WITH GOOD SATURATION. PT CALM, QUIET AND COOPERATIVE WITH CARE AND TREATMENT. STILL NOTED WITH PERIODS OF CONFUSION AND DISORIENTATION, REORIENT PT NEEDED. VITAL SIGNS STABLE, AFEBRILE. NO EPISODE OF NAUSEA AND VOMITING. KEPT PAIN AT TOLERABLE LEVEL. ON SOFT DIET AND TOLERATED WELL. ALL DUE MEDS GIVEN. SITTER AT BEDSIDE FOR SAFETY. WILL ENDORSE TO MORNING RN FOR CONTINUITY OF CARE.
[2017-04-14 07:28] LABS: CALCIUM, SERUM 8.6 mg/dL (8.5-10.1); CREATININE 0.4 mg/dL (0.6-1.3); PHOSPHORUS 3.9 mg/dL (2.5-4.9); POTASSIUM 3.1 mmol/L (3.5-5.1)
--- NOTE | 2017-04-14 07:30 | NUR ---
MS RN AM NOTES PT AWAKE, SITTING IN HER BED, AO X2-3, ON RA, NO SOB, NOT IN DISTRESS, PT APPEARS CALM, QUIET AND COOPERATIVE WITH CARE AND TREATMENT. STILL NOTED WITH PERIODS OF CONFUSION AND DISORIENTATION, REORIENT PT NEEDED. DENIES ANY PAIN AT THIS TIME, D5NS AT 150 ML/HR TO BABAR MIDLINE RUNNING, SITE CLEAR. AMBULATORY, ON SOFT DIET AND TOLERATED WELL. BED LOW LOCKED, SR UP X 2, SITTER AT BEDSIDE FOR SAFETY. WILL CONT TO MONITOR. ON 5150 HOLD. EXP 04/16/17.
[2017-04-14 08:00] VITALS: BP 104/72
[2017-04-14] MEDS: PANTOPRAZOLE 40 MG TABLET.DR PO SCH (08:54)
[2017-04-14] MEDS: CHLORDIAZEPOXIDE HCL 25 MG CAPSULE PO SCH ×2 (08:54→12:14)
[2017-04-14] MEDS: CYANOCOBALAMIN 500 MCG TABLET PO SCH (08:54)
[2017-04-14] MEDS: buPROPion SR 150 MG TABLET.ER PO SCH (08:54)
[2017-04-14] MEDS: QUETIAPINE FUMARATE 25 MG TABLET PO PRN (08:54)
--- NOTE | 2017-04-14 09:30 | NUR ---
MS RN NOTES ADMINISTERED DUE MEDS.
--- NOTE | 2017-04-14 10:11 | NUR ---
MS RN NOTES PER JULIO AQUINO FOR DISCHARGE ONCE CLEARED BY PSYCH.
[2017-04-14] MEDS: POTASSIUM CHLORIDE 20 MEQ TAB.PRT.SR PO SCH ×2 (11:13→12:14)
--- NOTE | 2017-04-14 11:20 | NUR ---
SW met with pt. bedside to discuss discharge plan since pt. is no longer on a 5150 hold and is medically cleared for discharge. SW offered pt. to go to a inpatient detox treatment program however pt. declined stating today is her father's three year anniversary and her birthday is on [birth year]. Patient states she will go after her birthday. SW offered pt. list of resources yesterday which pt. has with her: List of Drug and Alcohol Treatments, List of Medical Detoxification programs, Residential alcohol and drug treatment programs, list of outpatient treatment programs, Co-occurring outpatient Treatment programs and listing of 12-Step Meeting Directory. Pt. makes her own medical decisions and has no advance directive or DPOA at this time. Pt. informed SW her mother is aware that she is being discharged today. Pt. is going to go home upon discharge. [place] [id number] [facility] [facility] [address].
--- NOTE | 2017-04-14 13:37 | NUR ---
MS RN NOTES PT DISCHARGED TO HOME TODAY PER MD IN STABLE CONDITION. PT RELEASED FROM [address] AND CLEARED BY HIM. PROVIDED DC INSTRUCTIONS, MED RECON LIST/PRESCRIPTION LIST AND HEALTH TEACHINGS. LEFT MIDLINE REMOVED, CATH TIP COMPLETE AND INTACT, PRESSURE APPLIED, NO BLEEDING, DRESSING IN PLACE. PT TO FOLLOW UP WITH PCP IN 1-2 WEEKS AND WILL MAKE OWN APPOINTMENT. ALL BELONGINGS CHECKED AND RETURNED, ALL PAPERWORKS SIGNED. REFUSE TO TAKE PHOTOS OF SKIN ISSUES. WAITING FOR MOTHER TO PICK HER UP.
[2017-04-14 14:54] VITALS: BP 104/72
--- NOTE | 2017-04-14 14:54 | NUR ---
MS RN NOTES PATIENT PICKED UP BY MOTHER AND SISTER. WILL GO HOME VIA PRIVATE CAR.
== END 2017-04-14 14:50 | disposition home or self-care (01) | DRG 441 ==
LOC: ER 18:06 → MED 19:49
PROVIDERS: ADMIT Family Medicine; ATTEND Family Medicine
PROC: 30233N1 Transfusion of Nonautologous Red Blood Cells into Peripheral Vein, Percutaneous Approach (ICD-10-PCS; 2017-04-11)
PROC: 05H633Z Insertion of Infusion Device into Left Subclavian Vein, Percutaneous Approach (ICD-10-PCS; principal; 2017-04-12)
DX: K72.90 Hepatic failure, unspecified without coma (principal); K85.20 Alcohol induced acute pancreatitis without necrosis or infection; K92.0 Hematemesis; D61.818 Other pancytopenia; D62 Acute posthemorrhagic anemia; E87.1 Hypo-osmolality and hyponatremia; K86.0 Alcohol-induced chronic pancreatitis; G31.2 Degeneration of nervous system due to alcohol; K76.6 Portal hypertension; F10.239 Alcohol dependence with withdrawal, unspecified; E83.42 Hypomagnesemia; K70.10 Alcoholic hepatitis without ascites; K74.60 Unspecified cirrhosis of liver; Y90.9 Presence of alcohol in blood, level not specified; Z91.011 Allergy to milk products; Z91.018 Allergy to other foods; F19.10 Other psychoactive substance abuse, uncomplicated; Z81.8 Family history of other mental and behavioral disorders; K76.0 Fatty (change of) liver, not elsewhere classified; F41.9 Anxiety disorder, unspecified; F32.9 Major depressive disorder, single episode, unspecified; E87.6 Hypokalemia; E53.8 Deficiency of other specified B group vitamins; D75.89 Other specified diseases of blood and blood-forming organs; D63.8 Anemia in other chronic diseases classified elsewhere; D53.9 Nutritional anemia, unspecified; Z72.0 Tobacco use; F10.229 Alcohol dependence with intoxication, unspecified; K29.20 Alcoholic gastritis without bleeding
CPT/HCPCS: 36415; 76705-TC; 80048-TC; 80061-TC; 80076-TC; 82140-TC; 82746; 83690-TC; 83735-TC; 84100-TC; 85025-TC; 86850-TC; 86921-TC; 87081-TC; A4606; J1170; J2405; J3411; J3475; J3480; J3490; J7030; J7042; J7050; J7060; P9016-BL; Z7610